=== PATIENT | male | born 1940 | race Caucasian/White ===

== ENCOUNTER 2021-01-28 16:11 | Inpatient (IN) | payer OTHER, SELFPAY ==
[2021-01-28] VITALS (7 sets, daily range): BP systolic 111–162; BP diastolic 58–90; PULSE 54–87; RESP 16–20; TEMP 36.6–37.1; O2SAT 94–99; BMI 24.8
--- NOTE | 2021-01-28 16:15 | DI.CT.S_ITS ---
PROCEDURE: CT STROKE INDICATIONS: acute Right facial droop, dysarthria TECHNIQUE: Noncontrast 4.5 mm thick angled axial sections acquired from the foramen magnum to the vertex, with coronal reformats. For radiation dose reduction, the following was used: automated exposure control, adjustment of mA and/or kV according to patient size. COMPARISON: None. FINDINGS: Image quality: Excellent. CSF spaces: Basal cisterns are patent. No extra-axial fluid collections. The ventricles are symmetric in size and shape. Brain: No intracranial bleeds or masses. There is cerebral volume loss for age, with resultant ventricular and sulcal prominence. There are periventricular and deep white matter chronic small vessel ischemic changes. Old small focal left posterior temporal infarct. There is intracranial internal carotid artery atherosclerosis. Question hyperdense distal left vertebral artery. Mild increased density in the right M1 segment MCA. Skull and face: Calvarium and visualized facial bones appear intact, without suspicious lesions. Sinuses: Visualized sinuses and mastoids are clear. IMPRESSION: 1. Question hyperdense left distal vertebral artery, suggesting possible acute thrombosis. 2. No evidence of acute stroke or hemorrhage or mass. 3. Old focal left posterior temporal stroke. Comment: Findings were discussed with Dr. Walls on 01/28/2021 at 1628 hours. This study fulfills neurological imaging criteria for inclusion or exclusion of acute stroke therapies based on available published neurological guidelines. Dictated by: Seth Leo M.D. on 01/28/2021 at 16:26 Approved by: Seth Leo M.D. on 01/28/2021 at 16:31
--- NOTE | 2021-01-28 16:16 | DI.CT.S_ITS ---
PROCEDURE: CT ANGIO HEAD AND NECK INDICATIONS: acute Right facial droop, dysarthria TECHNIQUE: Noncontrast images were performed earlier in the day and not repeated. After the administration of intravenous contrast, 1 mm thick sections acquired from the aortic arch through the [place]. Post-contrast 4.5 mm thick sections then re-acquired from the foramen magnum to the vertex. 3-dimensional cyygfng-cmfhohhyi-jzhawydgez (MIP) and/or volume rendering reformats were acquired of the central intracranial vasculature and neck separately. COMPARISON: [facility], CT, CT STROKE, 01/28/2021, 16:20. FINDINGS: Image quality: Excellent. BRAIN: CSF spaces: Ventricles are normal in size and shape. Basal cisterns are patent. No extra-axial fluid collections. Brain: No midline shift. No intracranial bleeds or masses. [place]-white matter interface appears intact. Skull and face: Calvarium and facial bones appear intact, without suspicious lesions. Orbits appear normal. Sinuses: Sinuses and mastoids are clear. HEAD CT ANGIOGRAPHY: Anterior circulation: Intracranial internal carotid arteries are normal in size and flow. The flow within the paired anterior cerebral arteries is normal and symmetric. The flow within the middle cerebral arteries is normal and symmetric. The anterior communicating artery is seen. No aneurysms are seen. Posterior circulation: Visualized portions of the vertebral arteries demonstrate normal caliber, and join to form a normal appearing basilar artery. There is a prominent left posterior communicating artery seen, with an accompanying diminutive left P1 segment. This is attributed to a type origin of the left posterior cerebral artery, which is considered to be a normal developmental variant of typically no clinical consequence. Flow within the posterior cerebral arteries is normal and symmetric. No aneurysms are seen. NECK CT ANGIOGRAPHY: Carotid system: The great vessels demonstrate a conventional anatomy as they arise from the aortic arch. Irregular plaque can be seen involving the aortic arch, as on series 11, image 234. The origins of the common carotid arteries appear patent. The common carotid arteries demonstrate normal caliber and courses. The bifurcation regions demonstrate atherosclerotic irregularity and calcification. There is approximately 80% narrowing seen involving the left proximal internal carotid artery, which is largely caused by soft plaque. On the right, there is 40-50% narrowing seen within the proximal internal carotid artery. The more distal internal carotid arteries demonstrate normal course and caliber. Posterior circulation: The origins of the vertebral arteries demonstrate approximately 40% narrowing on each side. The more superior extracranial portions of both vertebral arteries also demonstrate normal courses and calibers. In this patient with this given history, scrutiny is given to the left V4 segment at the apparent noncontrast CT abnormality. The vertebral artery within this region is normal and widely patent. They join to form a normal appearing basilar artery. Soft tissues: Visualized neck soft tissues demonstrate no suspicious abnormalities. Bones: No suspicious bony lesions. Visualized cervical spine appears normally aligned. Moderate lower cervical spine degenerative changes are seen. IMPRESSION: No significant abnormality can be seen involving the left V4 segment at the area of concern identified on the noncontrast head CT performed earlier in the day. There is approximately 80% narrowing seen involving the left proximal internal carotid artery, caused primarily by soft plaque. There is 40-50% narrowing seen involving the right proximal internal carotid artery. Approximately 40% narrowing seen involving the origins of each vertebral artery. If there is strong clinical suspicion for an acute stroke, please consider an MRI for further evaluation, as it is more sensitive (assuming that there is no contraindication to MRI). Incidental note is made of: type origin of the left posterior cerebral artery Moderate lower cervical spine degenerative change Atherosclerotic plaque seen at the aortic arch Any quantitative measurements of stenosis were performed using NASCET criteria. Dictated by: Adis Atkins M.D. on 01/28/2021 at 15:49 Approved by: Adis Atkins M.D. on 01/28/2021 at 15:55
[2021-01-28 16:33] LABS: Add Manual Diff / Slide Review NO; Basophils Absolute Auto 100 /uL (0-100); Basophils Percent Auto 0.8 % (0-2); Eosinophils Absolute Auto 100 /uL (0-450); Eosinophils Percent Auto 0.5 % (2-4); Hematocrit 43.2 % (41-53); Hemoglobin 14.5 g/dL (13.5-17.5); Lymphocytes Absolute Auto 3000 /uL (1100-4500); Lymphocytes Percent Auto 27.9 % (25-40); Mean Corpuscular HGB Conc 33.6 % (30-36); Mean Corpuscular Hemoglobin 33.4 PG (26-34); Mean Corpuscular Volume 99.2 fL (80-100); Monocytes Absolute Auto 800 /uL (0-900); Monocytes Percent Auto 7.1 % (3-14); Neutrophils Absolute Auto 6900 /uL (1500-7000); Neutrophils Percent Auto 63.7 % (50-75); Platelet Count 234 X10^3/uL (150-400); Red Blood Cell Count 4.36 X10^6/uL (4.5-5.9); Red Cell Distribution Width 13.4 % (11.6-14.8); White Blood Cell Count 10.8 X10^3/uL (4.5-11.0)
[2021-01-28 16:40] LABS: INR 1.1 (0.9-1.3); Prothrombin Time 12.1 SECONDS (10.1-12.7)
[2021-01-28 16:43] LABS: PTT Partial Thromboplastin Tim 30 SECONDS (26.4-36.2)
--- NOTE | 2021-01-28 16:43 | ED_ITS ---
HPI - General Adult General Chief complaint: Neuro Symptoms/Deficit Stated complaint: fall, can not talk Time Seen by Provider: 01/28/21 16:15 Mode of arrival: Wheelchair Limitations: altered mental status History of Present Illness HPI narrative: 80-year-old gentleman was wondering the hallways near the outpatient primary care clinics, he was confused, dysarthric, could not express why he was here and could not tell us his name. Staff helped him into a wheelchair and brought him to the emergency department. He did have a wallet with him and we were able to identify him based on his [place] driver's license. He was alert not complaining any pain dysarthric with a right facial droop but was able to walk and did apparently drive himself from home to the emergency department. We were able to contact his ex- who reported that the last she had seen him was about a week ago and he seemed to be doing well. She notes that their son talked to him 3 or 4 days ago again, doing well. He apparently lives alone. His notes that he does regularly use marijuana as well as psychedelics mushrooms but does not drink or use other recreational drugs. He is followed by Dr. Garcia and she is contacted. His medical records indicate that his only medical problems are hyperlipidemia for which he discontinued his atorvastatin about a year and a half ago. He has not had problems with blood pressure, cardiovascular disease or diabetes. Related Data Home Medications Medication Instructions Recorded Confirmed sertraline 100 mg PO DAILY 01/28/21 01/28/21 Allergies Allergy/AdvReac Type Severity Reaction Status Date / Time No Known Drug Allergies Allergy Verified 01/28/21 16:31 Review of Systems Review of Systems ROS Unobtainable: Unobtainable due to medical condition Patient History Medical History (Updated 01/28/21 @ 17:38 by Skylar Walls MD) Hyperlipidemia Social History household members: none Smoking Status: Current every day smoker alcohol intake: never Exam Narrative Exam Narrative: General: Healthy appearing, in no acute distress. Dysarthric but able to slowly answer questions. Well-nourished well-developed HEENT: Moist mucous membranes, right sclera injected (this is apparently a birthmark) with reactive pupils, no contusions abrasions or trauma to the head Neck: No JVD, supple Respiratory: Lungs are clear to auscultation, no wheezing no rales no rhonchi. Full and symmetrical air movement Cardiac: Regular rate and rhythm no murmurs no bruits Abdomen: Soft, nontender, good bowel tones, no flank pain Skin: Warm and dry, no rashes Neurologic: Right-sided facial droop, mild dysarthria and mild expressive dysphagia, slight decreased sensation right face right hand no motor abnormalities he is able to walk without difficulty and some minor ataxic difficulties with the right upper extremity. Extremities: No trauma, well perfused Psych: Cooperative, appropriate insight and affect NIH Stroke Scale/Score (NIHSS) RESULT SUMMARY: 5 points NIH Stroke Scale INPUTS: 1A: Level of consciousness ?> 0 = Alert; keenly responsive 1B: Ask month and age ?> 0 = Both questions right 1C: 'Blink eyes' & 'squeeze hands' ?> 0 = Performs both tasks 2: Horizontal extraocular movements ?> 0 = Normal 3: Visual [place] ?> 0 = No visual loss 4: Facial palsy ?> 1 = Minor paralysis (flat nasolabial fold, smile asymmetry) 5A: Left arm motor drift ?> 0 = No drift for 10 seconds 5B: Right arm motor drift ?> 0 = No drift for 10 seconds 6A: Left leg motor drift ?> 0 = No drift for 5 seconds 6B: Right leg motor drift ?> 0 = No drift for 5 seconds 7: Limb Ataxia ?> 1 = Ataxia in 1 Limb 8: Sensation ?> 1 = Mild-moderate loss: less sharp/more dull 9: Language/aphasia ?> 1 = Mild-moderate aphasia: some obvious changes, without significant limitation 10: Dysarthria ?> 1 = Mild-moderate dysarthria: slurring but can be understood 11: Extinction/inattention ?> 0 = No abnormality Initial Vital Signs Initial Vital Signs: Vital Signs Temperature 98.8 F 01/28/21 16:11 Pulse Rate 64 01/28/21 16:11 Respiratory Rate 17 01/28/21 16:11 Blood Pressure 162/75 H 01/28/21 16:11 Pulse Oximetry 98 01/28/21 16:11 Course Orders Ordered: ED Orders 01/28/21 16:15 CT Stroke Stat 01/28/21 16:16 CT angio head and neck Stat 01/28/21 16:24 Complete Blood Count AUTO DIFF Stat Comprehensive Metabolic Panel Stat Ethanol (ETOH) Stat Partial Thromboplastin Time Stat Prothrombin Time INR Stat 01/28/21 16:33 EKG-12 Lead Stat 01/28/21 16:54 Consult to Speech Therapy Evaluate & Treat 01/28/21 17:30 COVID19 - ADMIT ([employer] swab/PCR) Stat 01/28/21 18:40 Urine Drug Screen, Rapid Stat 01/28/21 18:45 Urinalysis and Microscopic Stat Sodium Chloride (Normal Saline 0.9%) 1,000 mls @ 150 mls/hr IV CONT ROMULO Last Admin: 01/28/21 17:30 Dose: 150 mls/hr Documented by: ACE Vital Signs Vital signs: Vital Signs - 8 hr 01/28/21 16:11 01/28/21 16:33 01/28/21 17:00 Temperature 98.8 F Pulse Rate 64 66 62 Respiratory Rate 17 20 17 Blood Pressure 162/75 H 162/75 H 131/64 Pulse Oximetry 98 99 94 01/28/21 17:30 Temperature Pulse Rate 64 Respiratory Rate 17 Blood Pressure 135/67 Pulse Oximetry 98 Medical Decision Making Lab Data Lab results reviewed: Yes I reviewed the patient's lab results. Result diagrams: 01/28/21 16:24 01/28/21 16:24 Labs: Lab Results 01/28/21 01/28/21 01/28/21 Range/Units 16:24 16:24 16:24 WBC 10.8 (4.5-11.0) X10^3/uL RBC 4.36 L (4.5-5.9) X10^6/uL Hgb 14.5 (13.5-17.5) g/dL Hct 43.2 (41-53) % MCV 99.2 (80-100) fL MCH 33.4 (26-34) PG MCHC 33.6 (30-36) % RDW 13.4 (11.6-14.8) % Plt Count 234 (150-400) X10^3/uL Neut % (Auto) 63.7 (50-75) % Lymph % (Auto) 27.9 (25-40) % [place] % (Auto) 7.1 (3-14) % Eos % (Auto) 0.5 L (2-4) % Baso % (Auto) 0.8 (0-2) % Neut # (Auto) 6900 (1063-3480) /uL Lymph # (Auto) 3000 (9892-3114) /uL [place] # (Auto) 800 (0-900) /uL Eos # (Auto) 100 (0-450) /uL Baso # (Auto) 100 (0-100) /uL PT 12.1 (10.1-12.7) SECONDS INR 1.1 (0.9-1.3) APTT 30 (26.4-36.2) SECONDS Sodium 135 L (137-145) mmol/L Potassium 4.2 (3.4-5.1) mmol/L Chloride 104 (98-107) mmol/L Carbon Dioxide 25 (22-32) mmol/L BUN 17 (9-20) mg/dL Creatinine 0.89 (0.66-1.25) mg/dL Estimated GFR > 60.0 (>60) mL/min BUN/Creatinine Ratio 19.1 (6-22) Glucose 124 H (80-110) mg/dL Calcium 9.0 (8.4-10.2) mg/dL Total Bilirubin 0.4 (0.2-1.3) mg/dL AST 29 (17-59) IU/L ALT 23 (<50) IU/L Alkaline Phosphatase 90 (38-126) U/L Total Protein 6.8 (6.3-8.2) g/dL Albumin 3.6 (3.5-5.0) g/dL Globulin 3.2 (1.7-4.1) g/dL Albumin/Globulin Ratio 1.1 (1.0-2.8) Ethyl Alcohol < 10 ( - 10) mg/dL SARS-CoV-2 (PCR) (Negative) 01/28/21 Range/Units 17:30 WBC (4.5-11.0) X10^3/uL RBC (4.5-5.9) X10^6/uL Hgb (13.5-17.5) g/dL Hct (41-53) % MCV (80-100) fL MCH (26-34) PG MCHC (30-36) % RDW (11.6-14.8) % Plt Count (150-400) X10^3/uL Neut % (Auto) (50-75) % Lymph % (Auto) (25-40) % [place] % (Auto) (3-14) % Eos % (Auto) (2-4) % Baso % (Auto) (0-2) % Neut # (Auto) (9419-7511) /uL Lymph # (Auto) (7878-9461) /uL [place] # (Auto) (0-900) /uL Eos # (Auto) (0-450) /uL Baso # (Auto) (0-100) /uL PT (10.1-12.7) SECONDS INR (0.9-1.3) APTT (26.4-36.2) SECONDS Sodium (137-145) mmol/L Potassium (3.4-5.1) mmol/L Chloride (98-107) mmol/L Carbon Dioxide (22-32) mmol/L BUN (9-20) mg/dL Creatinine (0.66-1.25) mg/dL Estimated GFR (>60) mL/min BUN/Creatinine Ratio (6-22) Glucose (80-110) mg/dL Calcium (8.4-10.2) mg/dL Total Bilirubin (0.2-1.3) mg/dL AST (17-59) IU/L ALT (<50) IU/L Alkaline Phosphatase (38-126) U/L Total Protein (6.3-8.2) g/dL Albumin (3.5-5.0) g/dL Globulin (1.7-4.1) g/dL Albumin/Globulin Ratio (1.0-2.8) Ethyl Alcohol ( - 10) mg/dL SARS-CoV-2 (PCR) Negative (Negative) Imaging Data CT scan - head: Radiologist's Impression: FINDINGS: Image quality: Excellent. CSF spaces: Basal cisterns are patent. No extra-axial fluid collections. The ventricles are symmetric in size and shape. Brain: No intracranial bleeds or masses. There is cerebral volume loss for age, with resultant ventricular and sulcal prominence. There are periventricular and deep white matter chronic small vessel ischemic changes. Old small focal left posterior temporal infarct. There is intracranial internal carotid artery atherosclerosis. Question hyperdense distal left vertebral artery. Mild increased density in the right M1 segment MCA. Skull and face: Calvarium and visualized facial bones appear intact, without suspicious lesions. Sinuses: Visualized sinuses and mastoids are clear. IMPRESSION: 1. Question hyperdense left distal vertebral artery, suggesting possible acute thrombosis. 2. No evidence of acute stroke or hemorrhage or mass. 3. Old focal left posterior temporal stroke. Comment: Findings were discussed with Dr. Walls on 01/28/2021 at 1628 hours. This study fulfills neurological imaging criteria for inclusion or exclusion of acute stroke therapies based on available published neurological guidelines. Dictated by: Seth Leo M.D. on 01/28/2021 at 16:26 CTA head and neck: Radiologist's Impression: FINDINGS: Image quality: Excellent. BRAIN: CSF spaces: Ventricles are normal in size and shape. Basal cisterns are patent. No extra-axial fluid collections. Brain: No midline shift. No intracranial bleeds or masses. [place]-white matter interface appears intact. Skull and face: Calvarium and facial bones appear intact, without suspicious lesions. Orbits appear normal. Sinuses: Sinuses and mastoids are clear. HEAD CT ANGIOGRAPHY: Anterior circulation: Intracranial internal carotid arteries are normal in size and flow. The flow within the paired anterior cerebral arteries is normal and symmetric. The flow within the middle cerebral arteries is normal and symmetric. The anterior communicating artery is seen. No aneurysms are seen. Posterior circulation: Visualized portions of the vertebral arteries demonstrate normal caliber, and join to form a normal appearing basilar artery. There is a prominent left posterior communicating artery seen, with an accompanying diminutive left P1 segment. This is attributed to a type origin of the left posterior cerebral artery, which is considered to be a normal developmental variant of typically no clinical consequence. Flow within the posterior cerebral arteries is normal and symmetric. No aneurysms are seen. NECK CT ANGIOGRAPHY: Carotid system: The great vessels demonstrate a conventional anatomy as they arise from the aortic arch. Irregular plaque can be seen involving the aortic arch, as on series 11, image 234. The origins of the common carotid arteries appear patent. The common carotid arteries demonstrate normal caliber and courses. The bifurcation regions demonstrate atherosclerotic irregularity and calcification. There is approximately 80% narrowing seen involving the left proximal internal carotid artery, which is largely caused by soft plaque. On the right, there is 40-50% narrowing seen within the proximal internal carotid artery. The more distal internal carotid arteries demonstrate normal course and caliber. Posterior circulation: The origins of the vertebral arteries demonstrate approximately 40% narrowing on each side. The more superior extracranial portions of both vertebral arteries also demonstrate normal courses and calibers. In this patient with this given history, scrutiny is given to the left V4 segment at the apparent noncontrast CT abnormality. The vertebral artery within this region is normal and widely patent. They join to form a normal appearing basilar artery. Soft tissues: Visualized neck soft tissues demonstrate no suspicious abnormalities. Bones: No suspicious bony lesions. Visualized cervical spine appears normally aligned. Moderate lower cervical spine degenerative changes are seen. IMPRESSION: No significant abnormality can be seen involving the left V4 segment at the area of concern identified on the noncontrast head CT performed earlier in the day. There is approximately 80% narrowing seen involving the left proximal internal carotid artery, caused primarily by soft plaque. There is 40-50% narrowing seen involving the right proximal internal carotid artery. Approximately 40% narrowing seen involving the origins of each vertebral artery. If there is strong clinical suspicion for an acute stroke, please consider an MRI for further evaluation, as it is more sensitive (assuming that there is no contraindication to MRI). Incidental note is made of: type origin of the left posterior cerebral artery Moderate lower cervical spine degenerative change Atherosclerotic plaque seen at the aortic arch Any quantitative measurements of stenosis were performed using NASCET criteria. Dictated by: Adis Atkins M.D. on 01/28/2021 at 15:49 ECG Data Attestation: I personally reviewed and interpreted this ECG as follows: Interpretation: Sinus rhythm at a rate of 73 Normal axis, normal intervals Nonspecific ST T wave changes No acute ischemia MDM Narrative Medical decision making narrative: 80-year-old gentleman who presents with stroke-like symptoms but is unable to tell us when symptoms started. It does sound like symptoms may have started up to 3 days ago with a bit of dizziness a fall where he hit his head and he did not recognize that he was having speech difficulties. last known well was over 3 days ago, talking to his son over the phone. Due to this, he is not a tPA candidate CT does not show acute bleed or acute vessel occlusions. There is no evidence of infection, trauma, acute coronary syndrome or alternate explanation. Patient will be admitted to the hospitalist service for further evaluation of presumed stroke, unknown time of onset and not a tPA candidate. Discharge Plan Departure Patient Disposition: Admitted As Inpatient Clinical Impression: Cerebrovascular accident Qualifiers: CVA mechanism: unspecified Qualified Code(s): I63.9 - Cerebral infarction, unspecified Admit Date/Time: 01/28/21 17:36 Admit Provider: Kandace Finley
--- NOTE | 2021-01-28 16:52 | PC.NURSE ---
Fails swallow screen, did not perform due to aphasia/dysarthria.
[2021-01-28 16:53] LABS: Alanine Aminotransferase 23 IU/L (<50); Albumin 3.6 g/dL (3.5-5.0); Albumin Globulin Ratio 1.1 (1.0-2.8); Alkaline Phosphatase 90 U/L (38-126); Aspartate Aminotransferase 29 IU/L (17-59); BUN Creatinine Ratio 19.1 (6-22); Bilirubin Total 0.4 mg/dL (0.2-1.3); Blood Urea Nitrogen 17 mg/dL (9-20); Carbon Dioxide 25 mmol/L (22-32); Chloride 104 mmol/L (98-107); Estimated Glomerular Filt Rate > 60.0 mL/min (>60); Ethanol (ETOH) < 10 mg/dL; Globulin 3.2 g/dL (1.7-4.1); Glucose 124 mg/dL (80-110); HEMOLYSIS 33 (0-50); Potassium 4.2 mmol/L (3.4-5.1); Sodium 135 mmol/L (137-145); Total Protein 6.8 g/dL (6.3-8.2)
--- NOTE | 2021-01-28 17:15 | ED.GENADULT ---
HPI - General Adult General Chief complaint: Neuro Symptoms/Deficit Stated complaint: fall, can not talk Time Seen by Provider: 01/28/21 16:15 Mode of arrival: Wheelchair Limitations: altered mental status Related Data Allergies Allergy/AdvReac Type Severity Reaction Status Date / Time No Known Drug Allergies Allergy Verified 01/28/21 16:31 Exam Initial Vital Signs Initial Vital Signs: Vital Signs Temperature 98.8 F 01/28/21 16:11 Pulse Rate 64 01/28/21 16:11 Respiratory Rate 17 01/28/21 16:11 Blood Pressure 162/75 H 01/28/21 16:11 Pulse Oximetry 98 01/28/21 16:11 Course Orders Ordered: ED Orders 01/28/21 16:15 CT Stroke Stat Complete Blood Count AUTO DIFF Stat Comprehensive Metabolic Panel Stat Ethanol (ETOH) Stat Partial Thromboplastin Time Stat Prothrombin Time INR Stat Urinalysis and Microscopic Stat Urine Drug Screen, Rapid Stat EKG-12 Lead Stat 01/28/21 16:16 CT angio head and neck Stat 01/28/21 16:54 Consult to Speech Therapy Evaluate & Treat Sodium Chloride (Normal Saline 0.9%) 1,000 mls @ 150 mls/hr IV CONT ROMULO Vital Signs Vital signs: Vital Signs - 8 hr 01/28/21 16:11 01/28/21 16:33 Temperature 98.8 F Pulse Rate 64 66 Respiratory Rate 17 20 Blood Pressure 162/75 H 162/75 H Pulse Oximetry 98 99 Medical Decision Making Medical Records Medical records reviewed: Yes I reviewed the patient's medical records. Lab Data Lab results reviewed: Yes I reviewed the patient's lab results. Result diagrams: 01/28/21 16:24 01/28/21 16:24 Labs: Lab Results 01/28/21 01/28/21 01/28/21 Range/Units 16:24 16:24 16:24 WBC 10.8 (4.5-11.0) X10^3/uL RBC 4.36 L (4.5-5.9) X10^6/uL Hgb 14.5 (13.5-17.5) g/dL Hct 43.2 (41-53) % MCV 99.2 (80-100) fL MCH 33.4 (26-34) PG MCHC 33.6 (30-36) % RDW 13.4 (11.6-14.8) % Plt Count 234 (150-400) X10^3/uL Neut % (Auto) 63.7 (50-75) % Lymph % (Auto) 27.9 (25-40) % [place] % (Auto) 7.1 (3-14) % Eos % (Auto) 0.5 L (2-4) % Baso % (Auto) 0.8 (0-2) % Neut # (Auto) 6900 (8128-7906) /uL Lymph # (Auto) 3000 (8451-8036) /uL [place] # (Auto) 800 (0-900) /uL Eos # (Auto) 100 (0-450) /uL Baso # (Auto) 100 (0-100) /uL PT 12.1 (10.1-12.7) SECONDS INR 1.1 (0.9-1.3) APTT 30 (26.4-36.2) SECONDS Sodium 135 L (137-145) mmol/L Potassium 4.2 (3.4-5.1) mmol/L Chloride 104 (98-107) mmol/L Carbon Dioxide 25 (22-32) mmol/L BUN 17 (9-20) mg/dL Creatinine 0.89 (0.66-1.25) mg/dL Estimated GFR > 60.0 (>60) mL/min BUN/Creatinine Ratio 19.1 (6-22) Glucose 124 H (80-110) mg/dL Calcium 9.0 (8.4-10.2) mg/dL Total Bilirubin 0.4 (0.2-1.3) mg/dL AST 29 (17-59) IU/L ALT 23 (<50) IU/L Alkaline Phosphatase 90 (38-126) U/L Total Protein 6.8 (6.3-8.2) g/dL Albumin 3.6 (3.5-5.0) g/dL Globulin 3.2 (1.7-4.1) g/dL Albumin/Globulin Ratio 1.1 (1.0-2.8) Ethyl Alcohol < 10 ( - 10) mg/dL Imaging Data CTA head and neck: Radiologist's Impression: FINDINGS: Image quality: Excellent. BRAIN: CSF spaces: Ventricles are normal in size and shape. Basal cisterns are patent. No extra-axial fluid collections. Brain: No midline shift. No intracranial bleeds or masses. Cheatham-white matter interface appears intact. Skull and face: Calvarium and facial bones appear intact, without suspicious lesions. Orbits appear normal. Sinuses: Sinuses and mastoids are clear. HEAD CT ANGIOGRAPHY: Anterior circulation: Intracranial internal carotid arteries are normal in size and flow. The flow within the paired anterior cerebral arteries is normal and symmetric. The flow within the middle cerebral arteries is normal and symmetric. The anterior communicating artery is seen. No aneurysms are seen. Posterior circulation: Visualized portions of the vertebral arteries demonstrate normal caliber, and join to form a normal appearing basilar artery. There is a prominent left posterior communicating artery seen, with an accompanying diminutive left P1 segment. This is attributed to a type origin of the left posterior cerebral artery, which is considered to be a normal developmental variant of typically no clinical consequence. Flow within the posterior cerebral arteries is normal and symmetric. No aneurysms are seen. NECK CT ANGIOGRAPHY: Carotid system: The great vessels demonstrate a conventional anatomy as they arise from the aortic arch. Irregular plaque can be seen involving the aortic arch, as on series 11, image 234. The origins of the common carotid arteries appear patent. The common carotid arteries demonstrate normal caliber and courses. The bifurcation regions demonstrate atherosclerotic irregularity and calcification. There is approximately 80% narrowing seen involving the left proximal internal carotid artery, which is largely caused by soft plaque. On the right, there is 40-50% narrowing seen within the proximal internal carotid artery. The more distal internal carotid arteries demonstrate normal course and caliber. Posterior circulation: The origins of the vertebral arteries demonstrate approximately 40% narrowing on each side. The more superior extracranial portions of both vertebral arteries also demonstrate normal courses and calibers. In this patient with this given history, scrutiny is given to the left V4 segment at the apparent noncontrast CT abnormality. The vertebral artery within this region is normal and widely patent. They join to form a normal appearing basilar artery. Soft tissues: Visualized neck soft tissues demonstrate no suspicious abnormalities. Bones: No suspicious bony lesions. Visualized cervical spine appears normally aligned. Moderate lower cervical spine degenerative changes are seen. IMPRESSION: No significant abnormality can be seen involving the left V4 segment at the area of concern identified on the noncontrast head CT performed earlier in the day. There is approximately 80% narrowing seen involving the left proximal internal carotid artery, caused primarily by soft plaque. There is 40-50% narrowing seen involving the right proximal internal carotid artery. Approximately 40% narrowing seen involving the origins of each vertebral artery. If there is strong clinical suspicion for an acute stroke, please consider an MRI for further evaluation, as it is more sensitive (assuming that there is no contraindication to MRI). Incidental note is made of: type origin of the left posterior cerebral artery Moderate lower cervical spine degenerative change Atherosclerotic plaque seen at the aortic arch Any quantitative measurements of stenosis were performed using NASCET criteria. Dictated by: Adis Atkins M.D. on 01/28/2021 at 15:49
[2021-01-28] MEDS: SODIUM CHLORIDE 0.9% 1,000 ML 150 ML IV (17:30)
[2021-01-28 18:18] LABS: COVID19 - ADMIT (NP swab/PCR) Negative (Negative)
[2021-01-28 18:47] LABS: Bacteria Urine None Seen; RBC Urine None Seen (0-5/HPF)
[2021-01-28 18:49] LABS: Appearance Urine UA CLEAR; Bilirubin Urine UA NEGATIVE (NEGATIVE); Color Urine UA YELLOW; Glucose Urine UA NEGATIVE (Negative); Ketones Urine UA NEGATIVE (NEGATIVE); Leukocyte Esterase Urine UA NEGATIVE (NEGATIVE); Nitrite Urine UA NEGATIVE (Negative); Occult Blood Urine UA NEGATIVE (Negative); Protein Urine UA NEGATIVE (Negative); Specific Gravity Urine UA <=1.005 (1.000-1.035); Urobilinogen Urine UA 0.2 E.U./dL (0.2)
[2021-01-28 19:01] LABS: UR Morphine/Opiate cutoff 300 Negative (Negative); Ur Creatinine Normal (Normal); Ur Specific Gravity Normal (Normal); Urine Amphetamines Negative (Negative); Urine Barbiturates Negative (Negative); Urine Benzodiazepines Negative (Negative); Urine Cocaine Negative (Negative); Urine MDMA Negative (Negative); Urine Methadone Negative (Negative); Urine Methamphetamines Negative (Negative); Urine Oxycodone Negative (Negative); Urine Phencyclidine Negative (Negative); Urine Tetrahydrocannabinol Positive (Negative); Urine Tricyclic Antidepressant Negative (Negative); Urine pH Normal (Normal)
[2021-01-28 19:04] LABS: Culture Indicated Urine Cult Not Indicated; Squamous Epithelial Cell Urine 0-1 /HPF (0-5/HPF); WBC Urine 0-1/HPF (0-5/HPF)
--- NOTE | 2021-01-28 21:08 | DI.MRI.S_ITS ---
PROCEDURE: MR STROKE Pre- and post-contrast brain MRI, non-contrast brain MR angiogram, pre- and postcontrast neck MR angiogram INDICATIONS: CVA TECHNIQUE: Brain: Noncontrast axial T1 spin echo, axial T2 fast spin echo, sagittal and axial FLAIR, coronal T2 fast spin echo, axial gradient echo, axial diffusion and ADC through the brain. After the administration of contrast, axial 3D VIBE of the cranial vasculature and brain. Brain MRA: Non-contrast 3-D time of flight MR angiogram, with multiple ajjjhss-zlfsywxwj-zlcjasdmef (MIP) reformats performed. Neck MRA: Axial and sagittal TruFISP through the neck. Coronal dynamic MR angiogram during administration of contrast in the arterial and venous phases, with 3-dimenstional cyialuf-qxzthcafy-mcwzkckyeb (MIP) reformats constructed from subtraction images. COMPARISON: [facility], CT, CT ANGIO HEAD AND NECK, 01/28/2021, 16:20. [facility], CT, CT STROKE, 01/28/2021, 16:20. FINDINGS: Image quality: Excellent. BRAIN: CSF spaces: Ventricles are normal in size and shape. Basal cisterns are patent. No extra-axial fluid collections. Brain: No intracranial bleeds or mass effects. Cheatham-white matter interface is normal overall. However, diffusion weighted images show left-sided MCA distribution scattered small acute ischemic insults. The appearance is suggestive of an embolic distribution on the left, with punctate foci of cortical and deep white matter ischemic injury involving the cortex of the left parietal region, the deep white matter of the left verdugo radiata, and also far lateral left temporal cortex and deep white matter at the posterior temporal lobe, lateral to the atrium of the left lateral ventricle. Brainstem appears normal. Normal intravascular flow voids are present on the right but the sylvian fissure middle cerebral artery branches on the left show asymmetric low-flow or absent flow. No abnormal intracranial enhancement. Skull and face: Calvarial marrow signal is normal. Orbits appear normal. Sinuses: Sinuses and mastoids are clear. BRAIN MR ANGIOGRAM: Anterior circulation: Intracranial internal carotid arteries are normal in size and enhancement. The flow within the paired anterior cerebral arteries is normal and symmetric. The flow within the middle cerebral artery branches on the right is normal. On the left, however, a short segment of the M1 middle cerebral artery is patent and then the vessel caliber narrows abruptly and symmetric flow within the M2 branch of the middle cerebral artery on the left is diminutive or absent. At the lateral left sylvian fissure M2 branches are clearly visualized but absent on the left. The anterior communicating artery is seen. No stenoses, occlusions, or aneurysms. Posterior circulation: The visualized portions of the vertebral arteries demonstrate normal caliber, and join to form a normal appearing basilar artery. The flow within the posterior cerebral arteries is normal and symmetric. No stenoses, occlusions, or aneurysms. NECK MR ANGIOGRAM: Carotids: Great vessels demonstrate a conventional anatomy as they arise from the aortic arch. The origins of the common carotid arteries appear patent. The calibers and courses of both common carotid arteries are normal. The bifurcation regions appear normal bilaterally. The internal carotid arteries demonstrate normal course and caliber on the right but there is a left-sided 50% narrowing at the origin of the left internal carotid artery.. Posterior circulation: The origins of the vertebral arteries appear patent. More superior portions of both vertebral arteries demonstrate normal course and caliber, and join to form a normal appearing basilar artery. Miscellaneous: Subclavian arteries appear patent. Pre-contrast images through the neck show no soft tissue abnormalities. IMPRESSION: BRAIN MRI: No right-sided ischemic injury is found. There is, however, left-sided multifocal areas of acute or subacute ischemic injury, in the vascular distribution of the left MCA. The appearance is suggestive of left-sided origin embolic event. BRAIN MR ANGIOGRAM: There is a short segment of the M1 left middle cerebral artery patent, but then abrupt narrowing and either termination of or pronounced diminution of flow within the M2 segment of the left middle cerebral artery occurs.. Sylvian fissure branches are poorly visualized on the left but well visualized on the right. NECK MR ANGIOGRAM: Approximately 50% stenosis of the origin of the left internal carotid artery. Dictated by: Sina Hollis M.D. on 01/29/2021 at 10:50 Approved by: Sina Hollis M.D. on 01/29/2021 at 11:10
--- NOTE | 2021-01-28 21:13 | DI.ECHO.S_ITS ---
[facility]---------[facility] +---------+ : : [address] : : : : [id number] : : : : Phone: [phone] Echocardiogram Report + + :Name: VICTORIANO GUTIERRES Study Date: 01/29/2021 Height: 67 in : :[facility] ReadingLocation: Weight: 158 lb : : Gender: Male BSA: 1.8 m2 : :: 1940 Age: 80 yrs BP: 114/76 mmHg: :Reason For Study: CVA : :Ordering Physician: AYANA, : :EZEKIEL Performed By: Bhanu Rahman : :Referring: EZEKIEL PIÑA : + + Interpretation Summary Normal left ventricle size with ejection fraction 60-65%. Moderate aortic valve sclerosis. Mild mitral annular calcification. Mild tricuspid regurgitation. Procedure: A two-dimensional transthoracic echocardiogram with color flow and Doppler was performed. The study quality was technically adequate. There is no prior echocardiogram noted for this patient. The patient was in sinus rhythm with heart rates between 54-57 bpm during the exam. Left Ventricle: The left ventricle is normal in size and wall thickness. The ejection fraction is estimated to be 60-65%. There are no focal wall motion abnormalities. Diastolic parameters suggest probable normal left ventricular diastolic function and normal filling pressures. Right Ventricle: The right ventricle is normal in size and function. Atria: Both atria are normal in size. There is no Doppler evidence for an interatrial shunt. Mitral Valve: There is mild mitral annular calcification. There is trace mitral regurgitation. Aortic Valve: There is discrete nodular thickening of the non- coronary cusp. There is moderate aortic valve sclerosis. No aortic regurgitation is present. Tricuspid Valve: The tricuspid valve is normal in structure and function. There is mild tricuspid regurgitation. The right ventricular systolic pressure is estimated to be at least 30 mmHg based on an estimated right atrial pressure of 3 mm Hg. Pulmonic Valve: The pulmonic valve is normal in structure and function. There is mild pulmonic regurgitation. Great Vessels: The aortic root is normal size. The dimensions of the ascending aorta are normal. The IVC is of normal diameter and collapses greater than 50% with a sniff. This suggests a low right atrial pressure of 3 mm Hg. Pericardium/ Pleura There is no pericardial effusion. There is no pleural effusion. MMode/2D Measurements & Calculations LVIDd: 4.4 cm LVOT diam: 1.9 cm LVIDs: 2.8 cm Ao root diam: 3.3 cm FS: 35.3 % asc Aorta Diam: 3.0 cm IVSd: 1.00 cm LVPWd: 0.85 cm LV woods. diameter/BSA (cm/m^2): 2.4 LV sys. diameter/BSA (cm/m^2): 1.6 LA A2 area: 14.6 cm2 RA area: 16.8 cm2 LA A4 area: 22.6 cm2 IVC diam: 1.9 cm LA length (vol): 5.0 cm LA vol: 55.6 ml LA vol index: 30.4 ml/m2 RVD1 (basal): 3.6 cm TAPSE: 2.4 cm Doppler Measurements & Calculations Ao V2 max: 158.0 cm/sec LVOT Max Marino: 120.9 cm/sec Ao V2 mean: 117.6 cm/sec LV V1 max P.8 mmHg Ao max P.0 mmHg LV V1 VTI: 27.2 cm Ao mean P.0 mmHg SHANA(I,D): 2.1 cm2 Ao V2 VTI: 37.6 cm SHANA(V,D): 2.2 cm2 sev ratio: 0.72 SHANA indexed to BSA (cm^2/m^2): 1.2 MV E max marino: 108.6 cm/sec TR max marino: 259.7 cm/sec MV A max marino: 75.5 cm/sec TR max P.0 mmHg MV E/A: 1.4 PA V2 max: 86.6 cm/sec Med Peak E' Marino: 7.4 cm/sec PA V2 mean: 61.8 cm/sec E/E' med: 14.6 PA mean P.7 mmHg Lat Peak E' Marino: 8.3 cm/sec PA pr(Accel): 44.7 mmHg E/E' lat: 13.1 E/e' average: 13.9 MV dec time: 0.20 sec SV(LVOT): 79.2 ml Electronically signed by: Alisha Arenas on Reading Physician:01/29/2021 12:02 PM
[2021-01-28 21:35] LABS: Hemoglobin A1C% w Est Avg Glu 5.5 % (4.0-6.0)
[2021-01-28] MEDS: ATORVASTATIN 20 MG TABLET PO (22:27)
--- NOTE | 2021-01-28 23:15 | P.HP_ITS ---
History of Present Illness History of Present Illness Date Patient Seen: 01/28/21 Time Patient Seen: 22:10 Chief complaint: fall, can not talk Narrative: Mr. Lauri Najera is a 72-year-old elderly with a past medical history of hyperlipidemia and depression who is brought to the ER by police when the patient was found wandering and disoriented. Upon arrival to the ER the patient had expressive aphasia was nonverbal with a facial droop. The patient's last known well was when he spoke with his ex- 3 days ago. At the time of encounter the patient is verbalizing with dysarthria and does report having fallen and hit his head 3:00 a.m. this morning. He does not recall being brought into the emergency department. Patient additionally reports that last n igh he had an episode double vision. He denies complaints of headaches or dizziness. He denies recent illness, fevers or chills, nasal congestion or sore throat. He reports no shortness of breath, cough or wheezing and has epigastric or abdominal pain, nausea vomiting, diarrhea or constipation. He reports no difficulty voiding. Upon arrival to the ER the patient has temperature 90.8?, heart rate 64, blood pressure 162/75, respirations 17 saturating 98% on room air. A stat CT stroke protocol as obtain 20 questionable hyperdense left distal vertebral artery suggestive possible thrombosis, no evidence of acute acute stroke or hemorrhage or mass an old focal left posterior temporal stroke. CTA is obtained finding no significant abnormalities involving the left V4 segment of the concerning area noted on the noncontrast head CT. There is approximately 80% narrowing of left proximal internal carotid, 40-50% narrowing involving the right proximal internal carotid and 40% narrowing involving origins of each vertebral artery. On laboratory analysis he has white count of 10.8, hemoglobin 14.5, hematocrit 43.2 and platelets of 234. His coags are all within normal range. His electrol ytes are unremarkable with a BUN of 17 and creatinine 0.89. His nonfasting glucose is 124. His liver functions are also within normal ranges. His urinalysis is negative for infection. His urine tox screen is positive for marijuana and is COVID screening is negative. The patient is admitted to the hospitalist team for presumed CVA. Patient History Medical History Cerebrovascular accident Depression Hyperlipidemia Surgical History No history of previous surgery Family & Social History Family History Father Cardiovascular disease Heart attack Mother No significant past medical history Social History: household members none Prior Living Arrangements House Safety & Behavioral: Feels Safe in Current Yes Environment Been Physically Hurt or No Threatened By a Person Suicidal Ideation Description None Suicide Plan Description No Plan Tobacco & Substance use: Tobacco type cigarettes Smoking Status Current every day smoker alcohol intake never Substance Use Type does not use Meds Home Medications and Allergies Home Medications Medication Instructions Recorded Confirmed Type sertraline 100 mg PO DAILY 01/28/21 01/28/21 History Allergies Allergy/AdvReac Type Severity Reaction Status Date / Time No Known Drug Allergies Allergy Verified 01/28/21 16:31 Review of Systems Review of Systems ROS: Yes All systems reviewed with the patient and are negative except as otherwise documented Exam Vital Signs (past 8 hours): - 01/28/21 16:11 01/28/21 16:33 01/28/21 17:00 Temperature 98.8 F Pulse Rate 64 66 62 Respiratory Rate 17 20 17 Blood Pressure 162/75 H 162/75 H 131/64 Pulse Oximetry 98 99 94 01/28/21 17:30 01/28/21 18:05 01/28/21 21:29 Temperature 98.3 F 97.8 F Pulse Rate 64 87 59 L Respiratory Rate 17 20 18 Blood Pressure 135/67 136/90 112/64 Pulse Oximetry 98 96 98 Oxygen Delivery Method Room Air Oxygen Flow Rate 1 Narrative Exam Narrative: GENERAL APPEARANCE: well developed, frail appearing elderly gentleman with impaired speech, in no acute distress. HEENT: Atraumatic, PERRLA, conjunctiva clear, EOMs intact without nystagmus, no sinus tenderness to percussion, no rhinorrhea or epistaxis, mucous membranes are moist and pink. NECK/THYROID: neck supple, no JVD, no carotid bruit, no thyromegaly, trachea midline. LYMPH NODES: no cervical or supraclavicular lymphadenopathy. SKIN: [place], warm and dry, no visible lesions, rashes, ulcerations or petechiae. HEART: regular rate and rhythm, S1-S2, 1/6 systolic murmur, no rubs or gallops, brisk capillary refill, no edema LUNGS: clear to auscultation bilaterally, no coarseness crackles or wheezing, no cough present CHEST: Symmetrical movement, no accessory muscle use, good tidal volume, no pain on AP and lateral compression. ABDOMEN: Soft, no distention, no abdominal tenderness, no guarding or peritoneal signs, no organomegaly, no flank or suprapubic tenderness, active bowel tones. BACK: Normal curvature, nontender to palpation, no CVA tenderness on percussion EXTREMITIES: moves all extremities, strength is 5/5 and symmetrical, no deformities or joint effusions. NEUROLOGIC: AAO x4, no focal neurologic deficits, cranial nerves II-XII grossly intact, sensation intact to light touch, hearing grossly normal to speech. PSYCH: Good judgment, good insight, linear thought process, cooperative, appropriate with stable behavior Objective Labs Result Diagrams: 01/28/21 16:24 01/28/21 16:24 Labs: Laboratory Results - last 24 hr 01/28/21 01/28/21 01/28/21 16:24 16:24 16:24 WBC 10.8 RBC 4.36 L Hgb 14.5 Hct 43.2 MCV 99.2 MCH 33.4 MCHC 33.6 RDW 13.4 Plt Count 234 Neut % (Auto) 63.7 Lymph % (Auto) 27.9 [place] % (Auto) 7.1 Eos % (Auto) 0.5 L Baso % (Auto) 0.8 Neut # (Auto) 6900 Lymph # (Auto) 3000 [place] # (Auto) 800 Eos # (Auto) 100 Baso # (Auto) 100 PT 12.1 INR 1.1 APTT 30 Sodium 135 L Potassium 4.2 Chloride 104 Carbon Dioxide 25 BUN 17 Creatinine 0.89 Estimated GFR > 60.0 BUN/Creatinine Ratio 19.1 Glucose 124 H Hemoglobin A1c Calcium 9.0 Total Bilirubin 0.4 AST 29 ALT 23 Alkaline Phosphatase 90 Total Protein 6.8 Albumin 3.6 Globulin 3.2 Albumin/Globulin Ratio 1.1 Urine Color Urine Appearance Urine pH Ur Specific [place] Urine Protein Urine Glucose (UA) Urine Ketones Urine Occult Blood Urine Nitrate Urine Bilirubin Urine Urobilinogen Ur Leukocyte Esterase Urine RBC Urine WBC Ur Squamous Epith Cells Urine Bacteria Ur Culture Indicated? U Opiates 300ng/mL cut Ur Oxycodone Screen Urine Methadone Screen Ur Barbiturates Screen U Tricyclic Antidepress Ur Phencyclidine Scrn Ur Amphetamines Screen U Methamphetamines Scrn Ur MDMA Scrn (Ecstasy) U Benzodiazepines Scrn Urine Cocaine Screen U Marijuana (THC) Screen Ethyl Alcohol < 10 SARS-CoV-2 (PCR) 01/28/21 01/28/21 01/28/21 16:24 17:30 18:40 WBC RBC Hgb Hct MCV MCH MCHC RDW Plt Count Neut % (Auto) Lymph % (Auto) [place] % (Auto) Eos % (Auto) Baso % (Auto) Neut # (Auto) Lymph # (Auto) [place] # (Auto) Eos # (Auto) Baso # (Auto) PT INR APTT Sodium Potassium Chloride Carbon Dioxide BUN Creatinine Estimated GFR BUN/Creatinine Ratio Glucose Hemoglobin A1c 5.5 Calcium Total Bilirubin AST ALT Alkaline Phosphatase Total Protein Albumin Globulin Albumin/Globulin Ratio Urine Color Urine Appearance Urine pH Ur Specific [place] Urine Protein Urine Glucose (UA) Urine Ketones Urine Occult Blood Urine Nitrate Urine Bilirubin Urine Urobilinogen Ur Leukocyte Esterase Urine RBC Urine WBC Ur Squamous Epith Cells Urine Bacteria Ur Culture Indicated? U Opiates 300ng/mL cut Negative Ur Oxycodone Screen Negative Urine Methadone Screen Negative Ur Barbiturates Screen Negative U Tricyclic Antidepress Negative Ur Phencyclidine Scrn Negative Ur Amphetamines Screen Negative U Methamphetamines Scrn Negative Ur MDMA Scrn (Ecstasy) Negative U Benzodiazepines Scrn Negative Urine Cocaine Screen Negative U Marijuana (THC) Screen Positive H Ethyl Alcohol SARS-CoV-2 (PCR) Negative 01/28/21 18:45 WBC RBC Hgb Hct MCV MCH MCHC RDW Plt Count Neut % (Auto) Lymph % (Auto) [place] % (Auto) Eos % (Auto) Baso % (Auto) Neut # (Auto) Lymph # (Auto) [place] # (Auto) Eos # (Auto) Baso # (Auto) PT INR APTT Sodium Potassium Chloride Carbon Dioxide BUN Creatinine Estimated GFR BUN/Creatinine Ratio Glucose Hemoglobin A1c Calcium Total Bilirubin AST ALT Alkaline Phosphatase Total Protein Albumin Globulin Albumin/Globulin Ratio Urine Color Yellow Urine Appearance Clear Urine pH 7.0 Ur Specific [place] <=1.005 Urine Protein Negative Urine Glucose (UA) Negative Urine Ketones Negative Urine Occult Blood Negative Urine Nitrate Negative Urine Bilirubin Negative Urine Urobilinogen 0.2 Ur Leukocyte Esterase Negative Urine RBC None seen Urine WBC 0-1/hpf Ur Squamous Epith Cells 0-1 /hpf Urine Bacteria None seen Ur Culture Indicated? Cult not indicated U Opiates 300ng/mL cut Ur Oxycodone Screen Urine Methadone Screen Ur Barbiturates Screen U Tricyclic Antidepress Ur Phencyclidine Scrn Ur Amphetamines Screen U Methamphetamines Scrn Ur MDMA Scrn (Ecstasy) U Benzodiazepines Scrn Urine Cocaine Screen U Marijuana (THC) Screen Ethyl Alcohol SARS-CoV-2 (PCR) Assessment & Plan Assessment & Plan narrative: This is a 80-year-old frail-appearing elderly gentleman who is a current smoker with a past medical history of hyperlipidemia and depression who is brought to the ER by police after being found wandering and disoriented unable to speak. 1. Acute CVA, present on admission, active. -patient with prior left posterior temporal stroke and describes a fall hitting his head early this morning and double vision last night. -NIH score in the ER reported as 5, nursing reports a score of 4 and at the time of encounter NIH score is 3. Patient continues to demonstrate a trajectory of improvement, last known normal was 3 days ago. -CT of the head identifies hypodensity concerning for possible thrombus in the left distal vertebral artery. On CT a no significant abnormalities seen in the concerning segment noting approximately 80% narrowing involving the left proximal internal carotid artery, 40-50% narrowing of the right proximal ICA, approximate 40% stenosis seen at the origin of each vertebral artery. -ordered aspirin 81 mg daily and atorvastatin 20 mg daily. -MRI stroke protocol and echocardiogram in the morning -requested PT, OT and ST to consult evaluate and treat. -ordered hemoglobin A1c, lipid panel and TSH for risk stratification. 2. Hyperlipidemia, chronic, stable -patient was previously on statin therapy until approximately 18 months ago. -ordered atorvastatin 20 mg daily. -will obtain a lipid panel with morning labs. 3. Depression, chronic, stable -continue sertraline 100 mg daily. VTE prophylaxis: Enoxaparin IV fluid: Saline lock Diet: Heart healthy Code status: DO NOT RESUSCITATE, patient designates his ex- Catherine to be his surrogate decision maker. The patient is admitted to the hospital for further monitoring and evaluation of stroke to prevent complications or adverse events. The patient is admitted as observation with expected length of stay to be less than 2 midnights. COVID-19 COVID-19 status: Negative Result date/Date tested (Pos, Neg/Pending): 01/28/21 Scores GCS Inderjit coma scale eye opening: Spontaneous [place] coma scale verbal response: Orientated Inderjit coma scale motor response: Obey commands Inderjit coma scale total score: 15 NIHSS Level of Conciousness: Alert, keenly responsive Ask month/age: Answers both questions correctly. Open/close eyes, close hand: Performs both tasks correctly Best gaze horizontal: Normal Visual [place]: No visual loss Facial palsy: Minor paralysis, flattened nasolabial fold, asymmetry on smiling Left arm drift: No drift for full 10 sec Right arm drift: No drift for full 10 sec Left leg drift: No drift for full 5 sec Right leg drift: No drift for full 5 sec Limb ataxia: Absent Sensory on face/arms/legs: Normal, no sensory loss Best language: Mild to moderate, slurs some words Dysarthria: Mild to mod,some slurring Extinction or inattention: No abnormality Total NIH Stroke scale score: 3 Quality VTE Deep Vein Thrombosis/Pulmonary Embolism Present on Admission: No MIPS - Admit I confirm the patient?s Advance Care Plan is present, Code status is documented, Surrogate decision maker is in patient?s record [If Yes, STOP here]: Yes
[2021-01-29 04:00] VITALS: BP 102/58; PULSE 60; RESP 16; TEMP 36.8; O2SAT 96
[2021-01-29 05:14] LABS: BUN Creatinine Ratio 17.1 (6-22); Blood Urea Nitrogen 14 mg/dL (9-20); Calcium 8.4 mg/dL (8.4-10.2); Carbon Dioxide 25 mmol/L (22-32); Chloride 107 mmol/L (98-107); Cholesterol 176 mg/dL (140-199); Estimated Glomerular Filt Rate > 60.0 mL/min (>60); Glucose 101 mg/dL (80-110); HDL Cholesterol 27 mg/dL (40-60); HEMOLYSIS < 15 (0-50); LDL Cholesterol Calculated 118 mg/dL (<100); Sodium 136 mmol/L (137-145); Triglycerides 157 mg/dL (35-150)
[2021-01-29 07:32] VITALS: BP 114/76; PULSE 55; RESP 16; TEMP 36.4; O2SAT 96
[2021-01-29] MEDS: ASPIRIN EC 81 MG TABLET PO (09:33)
[2021-01-29] MEDS: DOCUSATE 100 MG CAPSULE PO ×2 (09:33→20:48)
[2021-01-29] MEDS: ENOXAPARIN 40 MG/0.4 ML SYRINGE SUBCUT (09:33)
--- NOTE | 2021-01-29 10:38 | ST.IPSLE ---
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) Past Medical History (Last Reviewed 01/28/21 @ 23:31 by ZACHARY Slade) Cerebrovascular accident (Medical) Depression (Medical) Hyperlipidemia (Medical) Speech-Language 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 Adult Cognitive Linguistic Eval Start: 01/29/21 10:06 Freq: Status: Active Protocol: Document 01/29/21 10:08 LNK (Rec: 01/29/21 10:37 LNK [id number]) Adult Cognitive Linguistic Evaluation Session Time Visit Start Time 09:20 Visit Stop Time 10:00 Total Visit Minutes 40 Referral Reason for Referral Code stroke Setting Assessment Location Acute Care Visit Type Note Type Initial evaluation Patient Information Identification Type Name,Date of Medical History Lauri Najera is a 80-year- old elderly with a past medical history of hyperlipidemia and depression who is brought to the ER by police when the patient was found wandering and disoriented. Upon arrival to the ER the patient had expressive aphasia was nonverbal with a facial droop. The patient's last known well was when he spoke with his ex- 3 days ago. At the time of encounter the patient is verbalizing with dysarthria and does report having fallen and hit his head 3:00 a.m. this morning. He does not recall being brought into the emergency department. Patient additionally reports that last night he had an episode double vision. Subjective Patient Report Pt was in bed alone in his room with breakfast tray at bedside. Nursing reported that the pt's PO tolerance had resolved and pt was eating/ drinking without difficulty. Pt agreed to talking with me. When asked why he was wandering around town at 10:00 at night, he responded I was at home. He also stated that he drove [himself] to the hospital. Assessment Oral Motor Examination Completed Yes: WFL Results Dentition adequate for mastication. ROM and strength adequate. Diadochokinesis is slow. Speech intelligibility ~ 90-100%. Informal Assessment Receptive Language Normal Yes: Informal conversation was WFL Expressive Language Normal Yes: Informal conversation was WFL Speech Impairment(s) Slow speech rate Cognitive Impairment(s) Orientation,Thought organization Formal Assessment Standardized Test/Screener Type [facility] Mental Status ([facility]) Administration Complete Results Pt reported that he had advanced education earning both undergraduate and graduate degrees. He scored 18/30 on the SLUMS indicating mild-moderate neurocognitive disorder. He was unsure of the day of the week but was able to state year, town and state. He remembered 1/5 words after a 5 minute delay. Mental math was mildly impaired for number reversal and subtraction. Pt's clock drawing showed uneven number spacing, but the time was accurate. Answering questions following a short paragraph read aloud to him, pt successfully answered 3/4 questions. Findings/Results Cognitive Function Mild-moderately impaired Cognitive Communication Deficits Self-awareness of Cognitive- No awareness Communication Deficits Impact on Functioning Activity Limits/Particip.Rest. Mild: General Tasks and Demands Interpersonal Interactions Community Mod: Household Tasks Safety Risks Mild: Being Left Alone at Home Mod: Reacting to Emergency Managing Medication Traveling Alone in Community Prognosis Prognosis Fair Based on Cognitive status Plan of Care Speech-Language Treatment No Frequency Pt declined speech therapy Patient/Caregiver Education Described results of evaluation,Patient expressed understanding of evaluation, Patient expressed understanding of eval, but refused treatment Discharge Recommendations penitentiary facility,intermediate manager care facility
[2021-01-29] MEDS: SERTRALINE 50 MG TABLET 100 MG PO (10:40)
[2021-01-29 11:21] VITALS: BP 124/91; PULSE 57; RESP 18; O2SAT 98
[2021-01-29] MEDS: CLOPIDOGREL 75 MG TABLET PO (12:21)
[2021-01-29] MEDS: ACETAMINOPHEN 325 MG TABLET 650 MG PO (12:21)
--- NOTE | 2021-01-29 12:34 | CM.DANOTE ---
Discharge Planning/Care Management DCP: assessment: case received, EMR reviewed and met with pt during Team Rounds and again just now. Introduced self and role. Pt is found sitting up, eating lunch. Very agreeable to talk. Pt is a 80 year old male who admitted last evening to care of hospitalist team. PCP: Roxann Garcia Payer: [employer] Medicare Admission status: INPT: confirmed by UR RN Lee. Pt confirms his family contacts: ex : Catherine Bird: [phone]/Karma and son Ahmet/Molina: [phone] (he looks this number up in his cell phone.) Dr. Pang confirms MRI shows pt is + for CVA. RESIDENTIAL LEASING MANAGER/OT and PT are ordered. PT arrived in room during this initial discussion with pt and left her to begin her eval. P: see pt again tomorrow as more is known re the POC going forward and the therapy recommendations. Pt does confirm that he drove himself to the hospital and has been looking for the ER when found by [facility] staff in the halls (see Dr. Walls's ER documentation for specifics.) Pt does confirm in Rounds that the only medication he takes is sertraline. He says that his family is aware that he is in the hospital. CM Discharge Assessment Start: 01/29/21 12:32 Freq: Status: Active Protocol: Document 01/29/21 12:33 ITV (Rec: 01/29/21 12:34 ITV [id number]) Discharge Planning Assessment Advance Directives? No History Provided By Patient,Medical Record Has Patient been admitted in last 30 No days? Prior Living Arrangements House Household Members none Type of transportation used prior to Drives own vehicle admit Independent with ADL's Yes Is patient alert and oriented? Yes Whiteboard Updated in Patient Room with Yes name and ext. # of Informatics Spec Review Status In Process
--- NOTE | 2021-01-29 13:46 | PM.PN.1 ---
Subjective Subjective Interval history: Mr. Lauri Najera is a 72-year-old elderly with a past medical history of hyperlipidemia and depression who is brought to the ER by police when the patient was found wandering and disoriented. Upon arrival to the ER the patient had expressive aphasia was nonverbal with a facial droop. His speech is still decreased from baseline, also reports some R arm weakness compared to baseline though not apparent on exam. The patient's last known well was when he spoke with his ex- 3 days prior to admission. Admits to [employer] mushroom use. 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 He was started on asa and plavix and statin increased to high intensity. Will continue to monitor, evaluate for disposition with PT/OT. SLUMS of 18 today, may be in setting of toxic encephalopathy or acute infarct. Exam Vital Signs (past 8 hours): - 01/29/21 07:32 01/29/21 11:21 Temperature 97.5 F L Pulse Rate 55 L 57 L Respiratory Rate 16 18 Blood Pressure 114/76 124/91 H Pulse Oximetry 96 98 Oxygen Delivery Method Room Air Oxygen Flow Rate 0 Narrative Exam Narrative: GENERAL APPEARANCE: well developed, frail appearing elderly gentleman with impaired speech, in no acute distress. HEENT: Atraumatic, PERRLA, conjunctiva clear, EOMs intact without nystagmus, no sinus tenderness to percussion, no rhinorrhea or epistaxis, mucous membranes are moist and pink. NECK/THYROID: neck supple, no JVD, no carotid bruit, no thyromegaly, trachea midline. LYMPH NODES: no cervical or supraclavicular lymphadenopathy. SKIN: [place], warm and dry, no visible lesions, rashes, ulcerations or petechiae. HEART: regular rate and rhythm, S1-S2, no rubs, murmur, or gallops, brisk capillary refill, no edema LUNGS: clear to auscultation bilaterally, no coarseness crackles or wheezing, no cough present CHEST: Symmetrical movement, no accessory muscle use, good tidal volume, no pain on AP and lateral compression. ABDOMEN: Soft, no distention, no abdominal tenderness, no guarding or peritoneal signs, no organomegaly, no flank or suprapubic tenderness, active bowel tones. BACK: Normal curvature, nontender to palpation, no CVA tenderness on percussion EXTREMITIES: moves all extremities, strength is 5/5 and symmetrical, no deformities or joint effusions. NEUROLOGIC: AAO x4, no focal neurologic deficits, cranial nerves II-XII grossly intact, sensation intact to light touch, hearing grossly normal to speech. PSYCH: Good judgment, good insight, linear thought process, cooperative, appropriate with stable behavior Objective Labs Result Diagrams: 01/28/21 16:24 01/29/21 04:50 Labs: Laboratory Results - last 24 hr 01/28/21 01/28/21 01/28/21 16:24 16:24 16:24 WBC 10.8 RBC 4.36 L Hgb 14.5 Hct 43.2 MCV 99.2 MCH 33.4 MCHC 33.6 RDW 13.4 Plt Count 234 Neut % (Auto) 63.7 Lymph % (Auto) 27.9 Saline % (Auto) 7.1 Eos % (Auto) 0.5 L Baso % (Auto) 0.8 Neut # (Auto) 6900 Lymph # (Auto) 3000 Saline # (Auto) 800 Eos # (Auto) 100 Baso # (Auto) 100 PT 12.1 INR 1.1 APTT 30 Sodium 135 L Potassium 4.2 Chloride 104 Carbon Dioxide 25 BUN 17 Creatinine 0.89 Estimated GFR > 60.0 BUN/Creatinine Ratio 19.1 Glucose 124 H Hemoglobin A1c Calcium 9.0 Total Bilirubin 0.4 AST 29 ALT 23 Alkaline Phosphatase 90 Total Protein 6.8 Albumin 3.6 Globulin 3.2 Albumin/Globulin Ratio 1.1 Triglycerides Cholesterol LDL Cholesterol, Calc HDL Cholesterol TSH Urine Color Urine Appearance Urine pH Ur Specific [place] Urine Protein Urine Glucose (UA) Urine Ketones Urine Occult Blood Urine Nitrate Urine Bilirubin Urine Urobilinogen Ur Leukocyte Esterase Urine RBC Urine WBC Ur Squamous Epith Cells Urine Bacteria Ur Culture Indicated? U Opiates 300ng/mL cut Ur Oxycodone Screen Urine Methadone Screen Ur Barbiturates Screen U Tricyclic Antidepress Ur Phencyclidine Scrn Ur Amphetamines Screen U Methamphetamines Scrn Ur MDMA Scrn (Ecstasy) U Benzodiazepines Scrn Urine Cocaine Screen U Marijuana (THC) Screen Ethyl Alcohol < 10 SARS-CoV-2 (PCR) 01/28/21 01/28/21 01/28/21 16:24 17:30 18:40 WBC RBC Hgb Hct MCV MCH MCHC RDW Plt Count Neut % (Auto) Lymph % (Auto) Saline % (Auto) Eos % (Auto) Baso % (Auto) Neut # (Auto) Lymph # (Auto) Saline # (Auto) Eos # (Auto) Baso # (Auto) PT INR APTT Sodium Potassium Chloride Carbon Dioxide BUN Creatinine Estimated GFR BUN/Creatinine Ratio Glucose Hemoglobin A1c 5.5 Calcium Total Bilirubin AST ALT Alkaline Phosphatase Total Protein Albumin Globulin Albumin/Globulin Ratio Triglycerides Cholesterol LDL Cholesterol, Calc HDL Cholesterol TSH Urine Color Urine Appearance Urine pH Ur Specific [place] Urine Protein Urine Glucose (UA) Urine Ketones Urine Occult Blood Urine Nitrate Urine Bilirubin Urine Urobilinogen Ur Leukocyte Esterase Urine RBC Urine WBC Ur Squamous Epith Cells Urine Bacteria Ur Culture Indicated? U Opiates 300ng/mL cut Negative Ur Oxycodone Screen Negative Urine Methadone Screen Negative Ur Barbiturates Screen Negative U Tricyclic Antidepress Negative Ur Phencyclidine Scrn Negative Ur Amphetamines Screen Negative U Methamphetamines Scrn Negative Ur MDMA Scrn (Ecstasy) Negative U Benzodiazepines Scrn Negative Urine Cocaine Screen Negative U Marijuana (THC) Screen Positive H Ethyl Alcohol SARS-CoV-2 (PCR) Negative 01/28/21 01/29/21 01/29/21 18:45 04:50 04:50 WBC RBC Hgb Hct MCV MCH MCHC RDW Plt Count Neut % (Auto) Lymph % (Auto) Saline % (Auto) Eos % (Auto) Baso % (Auto) Neut # (Auto) Lymph # (Auto) Saline # (Auto) Eos # (Auto) Baso # (Auto) PT INR APTT Sodium 136 L Potassium 4.0 Chloride 107 Carbon Dioxide 25 BUN 14 Creatinine 0.82 Estimated GFR > 60.0 BUN/Creatinine Ratio 17.1 Glucose 101 Hemoglobin A1c Calcium 8.4 Total Bilirubin AST ALT Alkaline Phosphatase Total Protein Albumin Globulin Albumin/Globulin Ratio Triglycerides 157 H Cholesterol 176 LDL Cholesterol, Calc 118 H HDL Cholesterol 27 L TSH 2.60 Urine Color Yellow Urine Appearance Clear Urine pH 7.0 Ur Specific [place] <=1.005 Urine Protein Negative Urine Glucose (UA) Negative Urine Ketones Negative Urine Occult Blood Negative Urine Nitrate Negative Urine Bilirubin Negative Urine Urobilinogen 0.2 Ur Leukocyte Esterase Negative Urine RBC None seen Urine WBC 0-1/hpf Ur Squamous Epith Cells 0-1 /hpf Urine Bacteria None seen Ur Culture Indicated? Cult not indicated U Opiates 300ng/mL cut Ur Oxycodone Screen Urine Methadone Screen Ur Barbiturates Screen U Tricyclic Antidepress Ur Phencyclidine Scrn Ur Amphetamines Screen U Methamphetamines Scrn Ur MDMA Scrn (Ecstasy) U Benzodiazepines Scrn Urine Cocaine Screen U Marijuana (THC) Screen Ethyl Alcohol SARS-CoV-2 (PCR) PFS Medical History Cerebrovascular accident Depression Hyperlipidemia Surgical History No history of previous surgery Family History Father Cardiovascular disease Heart attack Mother No significant past medical history Social History household members: none Smoking Status: Current every day smoker alcohol intake: never Assessment & Plan Assessment & Plan narrative: This is a 80-year-old frail-appearing elderly gentleman who is a current smoker with a past medical history of hyperlipidemia and depression who is brought to the ER by police after being found wandering and disoriented unable to speak, improved today. MRI confirmed acute left sided CVA. 1. Acute CVA, present on admission, active. -patient with prior left posterior temporal stroke and describes a fall hitting his head early this morning and double vision last night. -NIH score in the ER reported as 5, nursing reports a score of 4 and at the time of encounter NIH score is 3. Patient continues to demonstrate a trajectory of improvement, last known normal was 3 days ago. -CT of the head identifies hypodensity concerning for possible thrombus in the left distal vertebral artery. On CTA no significant abnormalities seen in the concerning segment noting approximately 80% narrowing involving the left proximal internal carotid artery, 40-50% narrowing of the right proximal ICA, approximate 40% stenosis seen at the origin of each vertebral artery.\ - MRI shows multiple acute/subacute ischemic infarcts in the area of the L MCA indicative of a left sided embolic event (from carotids). -continue asa, plavix, and statin increased to high intensity dosing. Plavix should be continued for at least 90 days. Recommend outpatient follow up with vascular surgery. -TTE unremarkable. -continue PT/OT. -A1c 5.5% , LDL 118, TSH 2.6 2. Hyperlipidemia, chronic, stable -patient was previously on statin therapy until approximately 18 months ago. -statin and LDL as noted above. 3. Depression, chronic, stable -continue sertraline 100 mg daily. 4. toxic encephalopathy or chronic cognitive impairment - patient with SLUMS of 18 with speech therapy today. May be in setting of acute infarct or psychadelic mushroom use. Recommend repeat SLUMS as an outpatient. - Continue OT. patient refused further speech therapy. VTE prophylaxis: Enoxaparin IV fluid: Saline lock Diet: Heart healthy Code status: DO NOT RESUSCITATE, patient designates his ex- Catherine to be his surrogate decision maker. Dispo: remains inpatient. To determine if discharge home with home health or possible SNF pending PT/OT evaluations. Quality VTE Deep Vein Thrombosis/Pulmonary Embolism Present on Admission: No
--- NOTE | 2021-01-29 14:20 | PT.IIE ---
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) Surgical History (Last Reviewed 01/28/21 @ 23:31 by ZACHARY Slade) No history of previous surgery Medical History (Last Reviewed 01/28/21 @ 23:31 by ZACHARY Slade) Cerebrovascular accident Depression Hyperlipidemia Physical Therapy Inpatient Evaluation/Re-Eval M1 PT/OT-IP Prior Functional Status Start: 01/29/21 15:24 Freq: NEEDED Status: Active Protocol: Document 01/29/21 14:20 AB (Rec: 01/29/21 15:58 AB [id number]) Medical Review Prior Functional Status Medical History Reviewed Yes Communication able to make needs known but with difficulty with speaking Mobility and Gait pt stated that he is independent with all mobilities and ambulation without AD Social History Household Members none Living Arrangements House Number of Floors (Floors) One Floor Number of Stairs To Enter/Railing? 2 steps to enter with bilateral posts (roof support posts) that he can hold on to Home Environment Standard Height Toilet,Tub/ Shower,Built-In Shower Seat Additional Social History Comment pt stated that his ex- calls and checks on him M2 PT-IP Current Condition Start: 01/29/21 15:24 Freq: NEEDED Status: Active Protocol: Document 01/29/21 14:20 AB (Rec: 01/29/21 15:58 AB [email or web address]) Physical Therapy Current Condition Current Condition Evaluation Date 01/29/21 Treatment Diagnosis CVA; difficulty in walking Onset Date 01/28/21 Precautions Other Precautions falls M3 PT-IP Subjective Start: 01/29/21 15:24 Freq: NEEDED Status: Active Protocol: Document 01/29/21 14:20 AB (Rec: 01/29/21 15:58 AB [email or web address]) Subjective Physical Therapy Visit Type Type Initial Evaluation Visit Start Time 14:20 Visit Stop Time 14:55 Total Visit Minutes 35 Number of STABLE MANAGER Visits 0 Physical Therapy Visit Comments Patient Comments pt is agreeable to do PT Therapy Pain Assessment Pain Present Pain Present Denied Pain M4 PT-IP Mobility and Gait Start: 01/29/21 15:24 Freq: NEEDED Status: Active Protocol: Document 01/29/21 14:20 AB (Rec: 01/29/21 15:58 AB [email or web address]) PT-Bed Mobility Assessment Supine to Sit Supine to Sit Standby Assistance Sit to Supine Sit to Supine Standby Assistance PT-Transfer Assessment Sit to and From Stand Sit to and from Stand Standby Assistance Equipment Transfer Assistive Device None,Gait Belt Orthotic/Prosthetic Devices or Brace: No Transfers Transfer Destination Chair Transfer Technique ambulated without AD Transfer Ability Level of Assist Contact Guard Assistance,1 Person Assistance,Use of Upper Extremities Comments Mobility Comments pt supine in bed and agreed to do PT. able to answer questions but has difficulty with speaking and pauses to get words out. completed supine to sit SBA and was able to sit on EOB SBA. completed sit to stand SBA and ambulated in room CGA. (+) LOB x 3 with LOB to the right, pt tends to cross RLE over midline and has difficulty walking a straigth path. tinettti balance assessment completed: total score of which relates to moderate fall risk. educated pt on safety and increase standing balance awareness. instructed pt to ambulate and walk a straight path and completed and is steadier than first walking. pt agreed to sit up on chair. ambulated to the chair. postioned on chair. call light and table placed within reach . Gait Assessment Gait Gait Assistance Required: Contact Guard Assist Distance (Feet) 40 Able to Maintain Weight Bearing Status Yes During Gait Assistive Devices Assistive Device None,Gait Belt Orthotic/Prosthetic Devices or Brace: No Gait Deviations General Gait Pattern Decreased Stride Length, Decreased Feet Clearance Factors Limiting Gait Function Factors Limiting Gait Function Decreased Activity Tolerance, Decreased Strength,Poor Balance PT-Balance Assessment Sitting Balance and Reactions Static Sitting Balance Ability Normal Dynamic Sitting Balance Ability Good Standing Balance and Reactions Static Standing Balance Ability Good Dynamic Standing Balance Ability Fair Device Used without AD Functional Assessments Functional Tests Tinetti Balance and Gait Assessment bal score: 09/16 gait score: total: Other Functional Tests Performed tinetti balance: which relates to moderate fall risk M5 PT-IP Objective Assessments Start: 01/29/21 15:24 Freq: NEEDED Status: Active Protocol: Document 01/29/21 14:20 AB (Rec: 01/29/21 15:58 AB [id number]) Orientation Orientation/Cognition Level of Alertness Alert Orientation Name,Month,Year,Place Memory Description No Deficits Noted Gross Range of Motion Lower Extremity ROM Assessment Within Functional Limits Strength Lower Extremity Strength Assessment Within Functional Limits Sensation Assessment Sensation Gross Sensation WNL Muscle Tone Muscle Tone WNL Yes M6 PT-IP Treatment Start: 01/29/21 15:24 Freq: NEEDED Status: Active Protocol: Document 01/29/21 14:20 AB (Rec: 01/29/21 15:58 AB [id number]) Physical Therapy Treatment Education Education Provided Safety Other Treatments Other Treatment Performed standing balance: increase body position and COG awareness M7 PT-IP Assessment and Plan Start: 01/29/21 15:24 Freq: NEEDED Status: Active Protocol: Document 01/29/21 14:20 AB (Rec: 01/29/21 15:58 AB [email or web address]) PT Summary Assessment and Plan Potential Rehabilitation Potential Good Status of Condition at Evaluation Stable Summary Impairments Balance,Coordination,Sensation ,Cognition,Bed Mobility, Transfers,Gait,Activity Tolerance Assessment Summary pt requiring SBA to CGA with mobility without AD. Tinetti balance assessment: which realtes to moderate fall risk. pt lives alone and will not have assistance at home. d/c plan depending on progress during hospital stay and will need to continue assessing. if pt goes home, will require assistance at this time for safety. Goals Bed Mobility Goal Independent Transfer Goal Independent Gait Goal Independent Gait Distance 200 Other Goals up/down 2 steps B rails SBA Days to Meet Goals 5 Frequency of Treatment Frequency Of Treatment Once a Day Treatment Plan Physical Therapy Treatment Plan Bed Mobility Training,Transfer Training,Gait Training, Therapeutic Exercise,Balance Retraining,Discharge Planning, Hot or Cold Pack,Neuromuscular Re-ed,Coordination Retraining Precautions Other Precautions falls Recommendations To Nursing Amount of Assist Needed 1 Person Assist Discharge Recommendations PT Discharge Recommendations Home with Assistance,Home vs SNF Transportation Needs at Discharge Private Vehicle
[2021-01-29 15:46] VITALS: BP 117/61; PULSE 58; RESP 18; TEMP 36.4; O2SAT 95
--- NOTE | 2021-01-29 16:44 | OT.IP.EVAL ---
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 (Rec: 01/29/21 18:12 [facility] [id number]) Medical Review Prior Functional Status Medical History Reviewed Yes Communication able to make needs known but with difficulty with speaking Mobility and Gait pt stated that he is independent with all mobilities and ambulation without AD Activities of Daily Living and IADL's Pt states prior was completely independent for all needs. Social History Household Members none Living Arrangements House Number of Floors (Floors) One Floor Number of Stairs To Enter/Railing? 2 steps to enter with bilateral posts (roof support posts) that he can hold on to Home Environment Standard Height Toilet,Tub/ Shower,Built-In Shower Seat Additional Social History Comment pt stated that his ex- calls and checks on him, Pt's ex- Catherine states is available to stay with him until he gets better if needed . M2 OT-IP Current Condition Start: 01/29/21 17:17 Freq: Status: Active Protocol: Document 01/29/21 17:50 [facility] (Rec: 01/29/21 18:12 [facility] [id number]) Occupational Therapy Current Condition Current Condition Evaluation Date 01/29/21 Treatment Diagnosis CVA Diagnosis Onset Date 01/28/21 M3 OT- IP Subjective and Pain Start: 01/29/21 17:17 Freq: Status: Active Protocol: Document 01/29/21 17:50 [facility] (Rec: 01/29/21 18:12 [facility] [id number]) OT- Subjective Occupational Therapy Visit Type Type Initial Evaluation Visit Start Time 16:00 Visit Stop Time 16:44 Total Visit Minutes 44 Occupational Therapy Visit Comments Patient Comments Pt agreed to do OT eval. Pt's ex- , Catherine present. Patient/Caregiver Goals Ideally, pt states would like to go home. OT Pain Assessment Pain When Pain Assessed At Rest Pain Present Pain Present Denied Pain M4 OT- IP ADL's Start: 01/29/21 17:17 Freq: Status: Active Protocol: Document 01/29/21 17:50 [facility] (Rec: 01/29/21 18:12 [facility] [id number]) OT [id number] Comments OT Self-Feeding Comments Pt states earlier was having trouble to guide the utensil with his right hand to eat . OT ADL-Grooming General Evaluation Grooming Ability Standby Assistance Areas Needing Assistance Retrieving/Set-up of Grooming Items Comments OT Grooming Comments Pt tends to use his left hand more than right hand while standing, combing and putting his hair up in a pony tail. OT ADL-Oral Care General Eval Oral Care Ability Independent OT ADL-Dressing General Eval Lower Body Dressing Ability Standby Assistance Comments OT Dressing Comments Pt using his left hand more than right hand to assist to ingrid his socks while seated. OT ADL-Toileting Comments OT Toileting Comments Pt not having to use the bathroom. OT ADL-Bathing Comments OT Bathing Comments To attempt tomorrow. M5 OT- IP IADL's Start: 01/29/21 17:17 Freq: Status: Active Protocol: Document 01/29/21 17:50 [facility] (Rec: 01/29/21 18:12 [facility] [id number]) OT-Instrumental Activities of Daily Living Home Safety Awareness Awareness of Need for Assistance at Home Decreased Awareness Home Safety Comments Pt having difficulty with cognitive functioning at this time, proprioception and coordination with right hand,, and would be best for his ex- to provide supervision and assist as needed. M6 OT- IP Functional Cognition Start: 01/29/21 17:17 Freq: Status: Active Protocol: Document 01/29/21 17:50 [facility] (Rec: 01/29/21 18:12 [facility] [id number]) Cognitive Factors Limiting Selfcare Function Cognitive Ability Level of Alertness Alert Patient Orientation Name,Place,Situation Attention Span Ability Capable of Focused Attention, Capable of Sustained Attention Ability to Follow Commands Able to Follow One Step Commands Memory Description Short Term Impaired,Working Impaired Safety Awareness Underestimates Need for Assistance Problem Solving Ability Unable to Identify Errors, Needs Assist to Identify Solutions Executive Function Ability Unable to Switch Focus,Unable to Organize Plans,Unable to Remember Details Cognitive Tests SLUMS Per CARE ASST pt scored , please see CARE [facility]ST eval for details. Cognitive Comments Cognitive Assessment Comments Pt not able to complete [place] making Part B and only able to get through 1-A-2-B before connecting to 4. Pt score implies severe impairment for visual attention, speed of processing, mental flexibility, executive functioning, and task switching. Pt strongly suggesting no driving at this time. Pt is very impulsive and likes to joke around a lot. OT- Vision and Hearing OT- Hearing Assessment OT- Hearing Assessment WFL OT- Vision Assessment Visual Acuity WFL Occular Pursuits WFL Visual Convergence WFL Visual Chairez WFL Diplopia Absent Vision Assessment Comments Pt states wears driving glasses. M7 OT- IP Mobility and Balance Start: 01/29/21 17:17 Freq: Status: Active Protocol: Document 01/29/21 17:50 [facility] (Rec: 01/29/21 18:12 [facility] [id number]) OT-Transfer Assessment Sit to and From Stand Sit to and from Stand Standby Assistance Transfers Transfer Ability Standby Assistance,Contact Guard Assistance Technique Transfer Destination Chair Transfer Technique Stand Step Pivot Devices Transfer Assistive Devices None,Gait Belt Comments Mobility Comments Close SBA to CGA for balance without any devices for short distance to sink and back to the recliner. OT- Balance Assessment Sitting Balance and Reactions Static Sitting Balance Ability Normal Dynamic Sitting Balance Ability Good Standing Balance and Reactions Static Standing Balance Ability Fair M8 OT- IP Objective Assessments Start: 01/29/21 17:17 Freq: Status: Active Protocol: Document 01/29/21 17:50 [facility] (Rec: 01/29/21 18:12 [facility] [id number]) OT Gross Range of Motion Upper Extremity Range of Motion Assessment Within Functional Limits OT Strength Upper Extremity Strength Assessment Right Impaired Comments Strength Comments RUE 4/5, LUE4+/5 OT- Coordination Assessment Upper Extremity Finger to Nose Test Right UE Impaired Comments Coordination Comments Pt decreased for hand writing, illegible and very small. Pt given cues to write between the line which appeared to improve his handwriting a little. Pt tends to flavor using his left hand more than right for ADl needs at this time. OT-Muscle Tone Assessment Muscle Tone WNL Yes OT Sensation Assessment Comments Summary Comments Grossly intact for light touch . Decreased prioprioception and kinesthesia for right wrist and hand. Educated to be mindful of his right side to prevent from hitting doorways, etc.. M9 OT- IP Assessment and Plan Start: 01/29/21 17:17 Freq: Status: Active Protocol: Document 01/29/21 17:50 [facility] (Rec: 01/29/21 18:12 [facility] [id number]) OT Summary Assessment and Plan Potential Rehabilitation Potential Good Analytic Complexity at Evaluation Moderate Summary OT Impairments Strength,Balance,Coordination, Functional Cognition, Functional Mobility,Self- Feeding,Grooming,Dressing, Toileting,Bathing,Toilet Transfers,Shower Transfers, Activity Tolerance Progress Towards Goals Progressing Toward Goals,Slow Progress due to Cognition Assessment Summary Pt MOD complexity and main barriers are steps, decreased executive functioning, coordination of right hand, decreased safety awareness and activity tolerance. Pt would benefit from skilled rehab versus home health/outpt pending pt's progress and 24/04 assist. Goals Self-Feeding Goal Independent Grooming Goal Independent Dressing Goal Independent Toileting Goal Independent Bathing Goal Independent Toilet Transfer Goal Independent Shower Transfer Goal Independent Days to Meet Goals 15 Frequency of Treatment Frequency Of Treatment Once a Day Treatment Plan OT Treatment Plan ADL Training,Functional Cognition Training,Functional Mobility,Patient/Family Education,Discharge Planning Other Treatment Recommendations and Next shower/FMS Treatment Focus Discharge Recommendations OT Discharge Recommendations Home vs SNF Other Discharge Recommendations pending progress and assist at home SNF versus home with 24/04 assist and home health/outpt Home Equipment Needs shower chair Transportation Needs at Discharge Private Vehicle
[2021-01-29 19:23] VITALS: BP 107/63; PULSE 57; RESP 18; TEMP 36.8; O2SAT 97
[2021-01-29] MEDS: ATORVASTATIN 20 MG TABLET 40 MG PO (20:47)
[2021-01-29 23:27] VITALS: BP 106/55; PULSE 56; RESP 18; TEMP 36.7; O2SAT 96
[2021-01-30 03:29] VITALS: BP 100/60; PULSE 47; RESP 18; TEMP 36.7; O2SAT 96
--- NOTE | 2021-01-30 03:31 | PC.NURSE ---
Addendum entered by Keli Edwards R.N. 01/30/21 03:35: correction: fall risk score is high Original Note: patient is alert and oriented with slurred speech and some word finding difficulty. NIH of 2. Breath sounds CTA with RA sat of 96%. HRR but bradycardic and telemetry reading was SB w/rate of 48. Denies nausea. BT present and abdomen is soft. Denies dysuria, frequency or urgency with urination; urine is clear yellow. Is able to turn himself in bed. Does not always remember to call for assistance and is slightly unsteady on feet. Fall risk score is moderate and bed alarm is activated. Declines to wear SCD's so reminded to ankle wave. Denies pain.
[2021-01-30 05:25] LABS: BUN Creatinine Ratio 15.9 (6-22); Blood Urea Nitrogen 13 mg/dL (9-20); Calcium 8.4 mg/dL (8.4-10.2); Carbon Dioxide 27 mmol/L (22-32); Chloride 106 mmol/L (98-107); Estimated Glomerular Filt Rate > 60.0 mL/min (>60); Glucose 95 mg/dL (80-110); HEMOLYSIS < 15 (0-50); Potassium 4.1 mmol/L (3.4-5.1); Sodium 136 mmol/L (137-145)
[2021-01-30 07:44] VITALS: BP 133/69; PULSE 55; RESP 15; TEMP 36.2; O2SAT 94
--- NOTE | 2021-01-30 07:44 | PC.NURSE ---
Day shift: Pt agrees to not get OOB w/o help from staff. Chair alarm is on. Call light in reach.
[2021-01-30 08:21] VITALS: O2SAT 96
[2021-01-30] MEDS: ASPIRIN EC 81 MG TABLET PO (09:44)
[2021-01-30] MEDS: SODIUM CHLORIDE 0.9% FLUSH 10 ML IV (09:44)
[2021-01-30] MEDS: ENOXAPARIN 40 MG/0.4 ML SYRINGE SUBCUT (09:44)
[2021-01-30] MEDS: CLOPIDOGREL 75 MG TABLET PO (09:44)
[2021-01-30] MEDS: SERTRALINE 50 MG TABLET 100 MG PO (09:44)
[2021-01-30] MEDS: DOCUSATE 100 MG CAPSULE PO (09:44)
--- NOTE | 2021-01-30 11:24 | PT.IPTN ---
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) Physical Therapy Treatment Note M2 PT-IP Current Condition Start: 01/29/21 15:24 Freq: NEEDED Status: Active Protocol: Document 01/29/21 14:20 AB (Rec: 01/29/21 15:58 AB [id number]) Physical Therapy Current Condition Current Condition Evaluation Date 01/29/21 Treatment Diagnosis CVA; difficulty in walking Onset Date 01/28/21 Precautions Other Precautions falls M3 PT-IP Subjective Start: 01/29/21 15:24 Freq: NEEDED Status: Active Protocol: Document 01/29/21 14:20 AB (Rec: 01/29/21 15:58 AB [id number]) Subjective Physical Therapy Visit Type Type Initial Evaluation Visit Start Time 14:20 Visit Stop Time 14:55 Total Visit Minutes 35 Number of [employer] S[employer]OR SPECIALIST Visits 0 Physical Therapy Visit Comments Patient Comments pt is agreeable to do PT Therapy Pain Assessment Pain Present Pain Present Denied Pain M4 PT-IP Mobility and Gait Start: 01/29/21 15:24 Freq: NEEDED Status: Active Protocol: Document 01/30/21 11:00 [facility] (Rec: 01/30/21 11:44 [facility] [id number]) PT-Transfer Assessment Sit to and From Stand Sit to and from Stand Standby Assistance Equipment Transfer Assistive Device None,Gait Belt Orthotic/Prosthetic Devices or Brace: No Transfers Transfer Destination Chair Transfer Technique ambulated without AD Transfer Ability Level of Assist Standby Assistance Comments Mobility Comments Pt stood from chair SBA and ambulated w/o AD SBA to therapy stairs, pt climbed stairs with use of bilateral rails SBA and ambulated in sarkar further before returning to room. Once in room pt performed standing balance. Pt left in room with all needs within reach and chair alarm on. Gait Assessment Gait Gait Assistance Required: Standby Assistance Distance (Feet) 400 Able to Maintain Weight Bearing Status Yes During Gait Assistive Devices Assistive Device None,Gait Belt Orthotic/Prosthetic Devices or Brace: No Gait Deviations General Gait Pattern Decreased Stride Length, Decreased Feet Clearance Factors Limiting Gait Function Factors Limiting Gait Function Decreased Activity Tolerance, Decreased Strength,Poor Balance Comments Gait Comments Pt had no LOB during gait but states he feels like he sways to the right. Pt required SBA w/o AD ~400ft. Stair Climbing Assessment Evaluation Level of Assist On Stairs Standby Assistance Devices Stair Climbing Assistive Devices Left Railing,Right Railing Technique/Endurance Stair Climbing Direction Ascend and Descend Stair Climbing Technique Step Over Step Number of Steps Climbed 3 Stair Climbing Set # Repetitions (reps) 1 PT-Balance Assessment Sitting Balance and Reactions Static Sitting Balance Ability Normal Dynamic Sitting Balance Ability Good Standing Balance and Reactions Static Standing Balance Ability Good Dynamic Standing Balance Ability Fair Device Used without AD Comments Other Balance Tests/Deviations/Treatment NBS EO/EC able to stand : without LOB with EO/EC. Tandem stance unable. Modified tandem EO/EC. M5 PT-IP Objective Assessments Start: 01/29/21 15:24 Freq: NEEDED Status: Active Protocol: Document 01/29/21 14:20 [facility] (Rec: 01/29/21 15:58 AB [id number]) Orientation Orientation/Cognition Level of Alertness Alert Orientation Name,Month,Year,Place Memory Description No Deficits Noted Gross Range of Motion Lower Extremity ROM Assessment Within Functional Limits Strength Lower Extremity Strength Assessment Within Functional Limits Sensation Assessment Sensation Gross Sensation WNL Muscle Tone Muscle Tone WNL Yes M6 PT-IP Treatment Start: 01/29/21 15:24 Freq: NEEDED Status: Active Protocol: Document 01/30/21 11:00 [facility] (Rec: 01/30/21 11:44 [facility] [id number]) Physical Therapy Treatment Education Education Provided Safety M7 PT-IP Assessment and Plan Start: 01/29/21 15:24 Freq: NEEDED Status: Active Protocol: Document 01/30/21 11:00 [facility] (Rec: 01/30/21 11:44 [facility] [id number]) PT Summary Assessment and Plan Potential Rehabilitation Potential Good Status of Condition at Evaluation Stable Summary Impairments Balance,Coordination,Sensation ,Cognition,Bed Mobility, Transfers,Gait,Activity Tolerance Progress Towards Goals Progressing Toward Goals Assessment Summary Pt with improved mobility able to ambulate ~400ft w/o AD SBA and climb stairs with bilateral rails SBA. Pt had no LOB during gait. Pt speak is slow but is able to answer question appropriately and follow directions. Pt plans to d/c home with assist of Catherine who will be able to assist him. Goals Bed Mobility Goal Independent Transfer Goal Independent Gait Goal Independent Gait Distance 200 Other Goals up/down 2 steps B rails SBA Days to Meet Goals 5 Frequency of Treatment Frequency Of Treatment Once a Day Treatment Plan Physical Therapy Treatment Plan Bed Mobility Training,Transfer Training,Gait Training, Therapeutic Exercise,Balance Retraining,Discharge Planning, Hot or Cold Pack,Neuromuscular Re-ed,Coordination Retraining Precautions Other Precautions falls Recommendations To Nursing Amount of Assist Needed 1 Person Assist Discharge Recommendations PT Discharge Recommendations Home with Assistance Transportation Needs at Discharge Private Vehicle
[2021-01-30 11:29] VITALS: BP 133/67; PULSE 55; RESP 16; TEMP 36.2; O2SAT 97
--- NOTE | 2021-01-30 11:59 | OT.IP.TRT ---
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 (Rec: 01/29/21 18:12 [facility] [id number]) Occupational Therapy Current Condition Current Condition Evaluation Date 01/29/21 Treatment Diagnosis CVA Diagnosis Onset Date 01/28/21 M3 OT- IP Subjective and Pain Start: 01/29/21 17:17 Freq: Status: Active Protocol: Document 01/30/21 13:40 [facility] (Rec: 01/30/21 13:44 [facility] [id number]) OT- Subjective Occupational Therapy Visit Type Type Progress Note Visit Start Time 11:45 Visit Stop Time 11:59 Total Visit Minutes 14 OT Pain Assessment Pain When Pain Assessed At Rest Pain Present Pain Present Denied Pain M4 OT- IP ADL's Start: 01/29/21 17:17 Freq: Status: Active Protocol: Document 01/30/21 13:40 [facility] (Rec: 01/30/21 13:44 [facility] [id number]) OT [id number] Comments OT Self-Feeding Comments not meal time OT ADL-Grooming General Evaluation Grooming Ability Independent Areas Needing Assistance Face Washing Comments OT Grooming Comments standing at sink OT ADL-Oral Care General Eval Oral Care Ability Independent Areas of Assistance Brushing Teeth,Retrieving/Set- Up of Items Comments Oral Care Comments standing at sink OT ADL-Dressing General Eval Lower Body Dressing Ability Independent Areas Needing Assistance Underpants/Brief,Socks Comments OT Dressing Comments seated in chair OT ADL-Toileting General Evaluation Toileting Ability Independent OT ADL-Bathing Comments OT Bathing Comments not performed M5 OT- IP IADL's Start: 01/29/21 17:17 Freq: Status: Active Protocol: Document 01/29/21 17:50 [facility] (Rec: 01/29/21 18:12 [facility] [id number]) OT-Instrumental Activities of Daily Living Home Safety Awareness Awareness of Need for Assistance at Home Decreased Awareness Home Safety Comments Pt having difficulty with cognitive functioning at this time, proprioception and coordination with right hand,, and would be best for his ex- to provide supervision and assist as needed. M6 OT- IP Functional Cognition Start: 01/29/21 17:17 Freq: Status: Active Protocol: Document 01/29/21 17:50 [facility] (Rec: 01/29/21 18:12 [facility] [id number]) Cognitive Factors Limiting Selfcare Function Cognitive Ability Level of Alertness Alert Patient Orientation Name,Place,Situation Attention Span Ability Capable of Focused Attention, Capable of Sustained Attention Ability to Follow Commands Able to Follow One Step Commands Memory Description Short Term Impaired,Working Impaired Safety Awareness Underestimates Need for Assistance Problem Solving Ability Unable to Identify Errors, Needs Assist to Identify Solutions Executive Function Ability Unable to Switch Focus,Unable to Organize Plans,Unable to Remember Details Cognitive Tests SLUMS Per MECHANICAL SYSTEM TECHNICIAN pt scored , please see MECHANICAL SYSTEM TECHNICIAN lavon for details. Cognitive Comments Cognitive Assessment Comments Pt not able to complete [place]ice making Part B and only able to get through 1-A-2-B before connecting to 4. Pt score implies severe impairment for visual attention, speed of processing, mental flexibilty, executive functioning, and task switching. Pt strongly suggesting no driving at this time. Pt is very impulsive and like to joke around a lot. OT- Vision and Hearing OT- Hearing Assessment OT- Hearing Assessment WFL OT- Vision Assessment Visual Acuity WFL Occular Pursuits WFL Visual Convergence WFL Visual Chairez WFL Diplopia Absent Vision Assessment Comments Pt states wears driving glasses. M7 OT- IP Mobility and Balance Start: 01/29/21 17:17 Freq: Status: Active Protocol: Document 01/30/21 13:40 [facility] (Rec: 01/30/21 13:44 [facility] [id number]) OT- Bed Mobility Assessment Supine to Sit Supine to Sit Assist Independent Sit to Supine Sit to Supine Assist Independent OT-Transfer Assessment Sit to and From Stand Sit to and from Stand Standby Assistance Transfers Transfer Ability Standby Assistance Technique Transfer Destination Bed,Chair,Toilet Transfer Technique Stand Step Pivot Devices Transfer Assistive Devices Gait Belt Comments Mobility Comments pt mobilized around the room without AD. OT- Balance Assessment Sitting Balance and Reactions Static Sitting Balance Ability Normal Dynamic Sitting Balance Ability Good M8 OT- IP Objective Assessments Start: 01/29/21 17:17 Freq: Status: Active Protocol: Document 01/29/21 17:50 [facility] (Rec: 01/29/21 18:12 [facility] [id number]) OT Gross Range of Motion Upper Extremity Range of Motion Assessment Within Functional Limits OT Strength Upper Extremity Strength Assessment Right Impaired Comments Strength Comments RUE 4/5, LUE4+/5 OT- Coordination Assessment Upper Extremity Finger to Nose Test Right UE Impaired Comments Coordination Comments Pt decreased for hand writing, illegible and very small. Pt given cues to write between the line which appeared to improve his handwriting a little. Pt tends to flavor using his left hand more than right for ADl needs at this time. OT-Muscle Tone Assessment Muscle Tone WNL Yes OT Sensation Assessment Comments Summary Comments Grossly intact for light touch . Decreased prioprioception and kinesthesia for right wrist and hand. Educated to be mindful of his right side to prevent from hitting doorways, etc.. M9 OT- IP Assessment and Plan Start: 01/29/21 17:17 Freq: Status: Active Protocol: Document 01/30/21 13:40 [facility] (Rec: 01/30/21 13:44 [facility] [id number]) OT Summary Assessment and Plan Potential Rehabilitation Potential Good Analytic Complexity at Evaluation Moderate Summary OT Impairments Strength,Balance,Coordination, Functional Cognition, Functional Mobility,Self- Feeding,Grooming,Dressing, Toileting,Bathing,Toilet Transfers,Shower Transfers, Activity Tolerance Progress Towards Goals Progressing Toward Goals,Slow Progress due to Cognition Assessment Summary Pt participated in ADLs demonstrating his increased abilities. Pt is now safe for discharge home with family checking in. Pt educated on activities that he could perform to assist with his R handed coordinition deficit but is able to write his name with extra time. Goals Self-Feeding Goal Independent Grooming Goal Independent Dressing Goal Independent Toileting Goal Independent Bathing Goal Independent Toilet Transfer Goal Independent Shower Transfer Goal Independent Days to Meet Goals 3 Frequency of Treatment Frequency Of Treatment Once a Day Treatment Plan OT Treatment Plan ADL Training,Functional Cognition Training,Functional Mobility,Patient/Family Education,Discharge Planning Other Treatment Recommendations and Next shower/FMS Treatment Focus Discharge Recommendations OT Discharge Recommendations Home Other Discharge Recommendations Recommend outpatient P.T. and ST. Home Equipment Needs shower chair Transportation Needs at Discharge Private Vehicle
--- NOTE | 2021-01-30 12:47 | P.DS_ITS ---
History of Present Illness History of Present Illness Date Patient Seen: 01/30/21 Time Patient Seen: 12:47 Chief complaint: fall, can not talk Narrative: As per ZACHARY Slade: Mr. Lauri Najera is a 72-year-old elderly with a past medical history of hyperlipidemia and depression who is brought to the ER by police when the patient was found wandering and disoriented. Upon arrival to the ER the patient had expressive aphasia was nonverbal with a facial droop. The patient's last known well was when he spoke with his ex- 3 days ago. At the time of encounter the patient is verbalizing with dysarthria and does report having fallen and hit his head 3:00 a.m. this morning. He does not recall being brought into the emergency department. Patient additionally reports that last night he had an episode double vision. He denies complaints of headaches or dizziness. He denies recent illness, fevers or chills, nasal congestion or sore throat. He reports no shortness of breath, cough or wheezing and has epigastric or abdominal pain, nausea vomiting, diarrhea or constipation. He reports no difficulty voiding. Upon arrival to the ER the patient has temperature 90.8?, heart rate 64, blood pressure 162/75, respirations 17 saturating 98% on room air. A stat CT stroke protocol as obtain 20 questionable hyperdense left distal vertebral artery suggestive possible thrombosis, no evidence of acute acute stroke or hemorrhage or mass an old focal left posterior temporal stroke. CTA is obtained finding no significant abnormalities involving the left V4 segment of the concerning area noted on the noncontrast head CT. There is approximately 80% narrowing of left proximal internal carotid, 40-50% narrowing involving the right proximal internal carotid and 40% narrowing involving origins of each vertebral artery. On laboratory analysis he has white count of 10.8, hemoglobin 14.5, hematocrit 43.2 and platelets of 234. His coags are all within normal range. His electrolytes are unremarkable with a BUN of 17 and creatinine 0.89. His nonfasting glucose is 124. His liver functions are also within normal ranges. His urinalysis is negative for infection. His urine tox screen is positive for marijuana and is COVID screening is negative. The patient is admitted to the hospitalist team for presumed CVA. Discharge Providers Provider Date of admission: 01/28/21 17:36 Discharge Date: 01/30/21 Primary care physician: Roxann Garcia MD Consults: 01/28/21 16:54 Consult to Speech Therapy Evaluate & Treat Comment: needs swallow eval Physician Instructions: Evaluate and treat 01/28/21 21:08 Consult to Discharge Planning Routine Comment: Consult to Occupational Therapy Evaluate & Treat Comment: Physician Instructions: Evaluate and treat Consult to Physical Therapy Evaluate & Treat Comment: Physician Instructions: Evaluate and Treat Consult to Speech Therapy Evaluate & Treat Comment: Physician Instructions: Evaluate and treat Discharge provider: Jose Pang DO Summary Hospital Course Discharge Diagnosis: Please see hospital course by problem list noted below. Hospital Course: This is a 80-year-old frail-appearing elderly gentleman who is a current smoker with a past medical history of hyperlipidemia and depression who is brought to the ER by police after being found wandering and disoriented unable to speak, improved over the course of admission. MRI confirmed acute left sided CVA. 1. Acute CVA, present on admission, active. -patient with prior left posterior temporal stroke and describes a fall hitting his head early this morning and double vision night prior to admission. -NIH score in the ER reported as 5, nursing reports a score of 4 and at the time of initial encounter NIH score is 3. Patient continues to demonstrate a trajectory of improvement, last known normal was 3 days ago. -CT of the head identifies hypodensity concerning for possible thrombus in the left distal vertebral artery. On CTA no significant abnormalities seen in the concerning segment noting approximately 80% narrowing involving the left proximal internal carotid artery, 40-50% narrowing of the right proximal ICA, approximate 40% stenosis seen at the origin of each vertebral artery. - MRI shows multiple acute/subacute ischemic infarcts in the area of the L MCA indicative of a left sided embolic event (from carotid). -started on asa, plavix, and his statin increased to high intensity dosing. Plavix should be continued for at least 90 days given carotid disease. Recommend outpatient follow up with vascular surgery. -TTE unremarkable. -discharged home with home health after PT/OT evaluations. SLUMS score 18/30 on admission, however his cognition continued to improve over the course of admission and would recommend repeat evaluation as an outpatient. -A1c 5.5% , LDL 118, TSH 2.6 2. Hyperlipidemia, chronic, stable -patient was previously on statin therapy until approximately 18 months ago. -statin and LDL as noted above. 3. Depression, chronic, stable -continue sertraline 100 mg daily. 4. toxic/metabolic encephalopathy or less likely chronic cognitive impairment - patient with SLUMS of 18 with speech therapy. May be in setting of acute infarct or psychadelic mushroom use as his cognition appeared to improve over the course of his hospitalization. Recommend repeat SLUMS as an outpatient. - discharged home with home health. 5. Tobacco use - patient was counseled on tobacco cessation. Status at Discharge Overall status at discharge: patient is progressing back to baseline Time Spent with Patient Time spent: Greater than 30 minutes Exam Vital Signs (past 8 hours): - 01/30/21 07:44 01/30/21 08:21 Temperature 97.2 F L Pulse Rate 55 L Respiratory Rate 15 Blood Pressure 133/69 Pulse Oximetry 94 96 Oxygen Delivery Method Room Air Oxygen Flow Rate 0 Narrative Exam Narrative: GENERAL APPEARANCE: well developed, mildly frail appearing elderly gentleman with impaired speech, in no acute distress. HEENT: Atraumatic, PERRLA, conjunctiva clear, EOMs intact without nystagmus, no sinus tenderness to percussion, no rhinorrhea or epistaxis, mucous membranes are moist and pink. NECK/THYROID: neck supple, no JVD, no carotid bruit, no thyromegaly, trachea midline. LYMPH NODES: no cervical or supraclavicular lymphadenopathy. SKIN: [place], warm and dry, no visible lesions, rashes, ulcerations or petechiae. HEART: regular rate and rhythm, S1-S2, no rubs, murmur, or gallops, brisk capillary refill, no edema LUNGS: clear to auscultation bilaterally, no coarseness crackles or wheezing, no cough present CHEST: Symmetrical movement, no accessory muscle use, good tidal volume ABDOMEN: Soft, no distention, no abdominal tenderness EXTREMITIES: moves all extremities, strength is 5/5 and symmetrical, no deformities or joint effusions. NEUROLOGIC: AAO x4, no focal neurologic deficits other than dysarthria which has improved, cranial nerves II-XII grossly intact, sensation intact to light touch, hearing grossly normal to speech. PSYCH: Good judgment, good insight, linear thought process, cooperative, appropriate with stable behavio Objective Labs Result Diagrams: 01/28/21 16:24 01/30/21 05:01 Labs: Laboratory Results - last 24 hr 01/30/21 05:01 Sodium 136 L Potassium 4.1 Chloride 106 Carbon Dioxide 27 BUN 13 Creatinine 0.82 Estimated GFR > 60.0 BUN/Creatinine Ratio 15.9 Glucose 95 Calcium 8.4 PFSH Medical History Cerebrovascular accident Depression Hyperlipidemia Surgical History No history of previous surgery Family History Father Cardiovascular disease Heart attack Mother No significant past medical history Social History household members: none Smoking Status: Current every day smoker alcohol intake: never Discharge Plan Discharge Plan Patient Disposition: Home Health Service Provider Discharge Comment: You were admitted to the hospital after a stroke. Some new medications were added to reduce your risk of having another stroke. You should follow up with your PCP and see about a referral to a vascular surgeon to see if you may benefit from a surgery. Please try and avoid using mus hrooms at home. Discharge orders & Medications Prescriptions: New clopidogrel 75 mg Tablet 75 mg PO DAILY 90 Days Qty: 90 RF: 0 aspirin 81 mg Tablet,Delayed Release (Dr/Ec) 81 mg PO DAILY 30 Days Qty: 30 RF: 0 atorvastatin 40 mg tablet 40 mg PO BEDTIME 30 Days Qty: 30 RF: 0 Continued sertraline 100 mg Tablet 100 mg PO DAILY RF: 0 Follow up/Referrals: Roxann Garcia MD [Primary Care Provider] - Diet/Activity/Treatments Diet: Diet as Tolerated Activity: As tolerated Visit Report/Discharge Packet Instructions: Ischemic Stroke, DI for Stroke-Ischemic, How to Prevent Falls, Atorvastatin, Clopidogrel Discharge Data Primary Care Provider: Roxann Garcia Quality VTE Deep Vein Thrombosis/Pulmonary Embolism Present on Admission: No
--- NOTE | 2021-01-30 13:57 | CM.DPC ---
Addendum entered by Tona Saldivar LPN 01/31/21 12:01: DC summary now complete. Have just faxed it to [facility]. Addendum entered by Tona Saldivar LPN 01/30/21 13:58: DCP: continued: PT/OT have worked with pt again today and he has done extremely well. He will dc to his home today and his ex-spouse Catherine Bird ines be staying with him. HH is recommended, pt is agreeable to same. Has never used this before/ agency list: discussed: vendor list choice is decision: referral to [facility]/ accepts. Will now fax the referral information to [facility] along with the Face/Face document and specific orders. Pt has the [facility] brochure. DC summary will be faxed when it is completed. Original Note: Discharge Planning/Care Management CM Discharge Assessment Start: 01/29/21 12:32 Freq: Status: Active Protocol: Document 01/29/21 12:33 ITV (Rec: 01/29/21 12:34 ITV [id number]) Discharge Planning Assessment Advance Directives? No History Provided By Patient,Medical Record Has Patient been admitted in last 30 No days? Prior Living Arrangements House Household Members none Type of transporation used prior to Drives own vehicle admit Independent with ADL's Yes Is patient alert and oriented? Yes Whiteboard Updated in Patient Room with Yes name and ext. # of [employer] Man Review Status In Process
--- NOTE | 2021-01-30 14:20 | PC.NURSE ---
Day shift: Paperwork signed and all questions answered. Pt has all personal belongings. New MD scripts sent to Pt's pharmacy electronic. Taken to car driven by his friend in by MARIA LUISA Hebert. Pt happy to be going home today. Encouraged to take meds as directed and eat healthy. Also to drink plenty of water and to exercise as tolerated. [employer] has been ordered and Pt has their info.
== END 2021-01-30 14:22 | disposition home health service (06) | DRG 64 ==
LOC: ED 16:27 → AC 17:37
PROVIDERS: Internal Medicine; Nurse Practitioner Adult Health; Admitting Provider Internal Medicine; Emergency Provider Emergency Medicine; PCP Internal Medicine; Referring Provider Emergency Medicine; Visit Provider Internal Medicine
DX: I63.132 Cerebral infarction due to embolism of left carotid artery (principal); G93.41 Metabolic encephalopathy; G92 Toxic encephalopathy; R47.01 Aphasia; F32.9 Major depressive disorder, single episode, unspecified; E78.5 Hyperlipidemia, unspecified; R29.810 Facial weakness; F17.210 Nicotine dependence, cigarettes, uncomplicated; T40.995A Adverse effect of other psychodysleptics [hallucinogens], initial encounter; Z20.822 Contact with and (suspected) exposure to COVID-19; Z66 Do not resuscitate; W19.XXXA Unspecified fall, initial encounter
CPT/HCPCS: 36415; 70450; 70496; 70498; 70548; 70553; 80048; 80053; 80061; 80305; 80320; 81001; 83036; 84443; 85025; 85610; 85730; 87635; 92523; 93005; 93306; 97116; 97161; 97166; 97530; 97535; 99285; 99406; C9803; J1650; Q9967

== ENCOUNTER → 2021-02-19 10:18 | Outpatient (CLI) | payer OTHER, SELFPAY ==
[2021-01-28 17:56] VITALS: BMI 24.8
[2021-02-19] MEDS: COVID-19 VACC, Ad26(JANSSEN)/PF 0.5 ML IM (10:29)
== END ==
PROVIDERS: Visit Provider Internal Medicine
DX: Z23 Encounter for immunization (principal)
CPT/HCPCS: 0031A; 91303

== ENCOUNTER 2022-02-28 23:32 | Emergency (ER) | payer OTHER, SELFPAY ==
[2021-01-28 17:56] VITALS: BMI 24.8
[2022-02-28 23:47] VITALS: BP 135/66; PULSE 74; RESP 20; TEMP 36.7; O2SAT 98
--- NOTE | 2022-02-28 23:55 | DI.RAD.S_ITS ---
PROCEDURE: XR CHEST 2V INDICATIONS: dry cough TECHNIQUE: 2 views of the chest were acquired. COMPARISON: None. FINDINGS: Surgical changes and devices: None. Lungs and pleura: There are a few patchy indistinct opacities bilaterally. No pleural effusions or pneumothorax. Mediastinum: Mediastinal contours are normal. Heart size is normal. Bones and chest wall: No suspicious bony abnormalities. Soft tissues appear unremarkable. IMPRESSION: 1. Patchy indistinct opacities bilaterally are nonspecific but may reflect pneumonia given clinical history. Dictated by: Lee Heaton M.D. on 03/01/2022 at 0:35 Approved by: Lee Heaton M.D. on 03/01/2022 at 0:36
--- NOTE | 2022-03-01 00:08 | DI.CT.S_ITS ---
P the the ROCEDURE: CT ABDOMEN PELVIS W CON INDICATIONS: Abdominal pain, distention, petechia, TECHNIQUE: After the administration of IV contrast, axial sections were acquired from the lung bases to the pubic symphysis. Coronal and sagittal reformats were performed. For radiation dose reduction, the following was used: automated exposure control, adjustment of mA and/or kV according to patient size. COMPARISON: None. FINDINGS: Image quality: Excellent. Lung bases: There are numerous small nodules within the visualized lung bases bilaterally. Vp Treasurer nodule peripherally within the right lower lobe measures up to 0.6 cm on series 3, image 5. Heart: Heart is normal in size. There is a small hiatal hernia. There are prominent paraesophageal lymph nodes measuring up to 0.5 cm in short axis. ABDOMEN: Liver: Innumerable hypoattenuating peripherally enhancing mass lesions are demonstrated throughout the liver involving all segments. A exhibit display representative mass posteriorly within segment 6 measures up to 2.3 x 1.8 cm on series 2, image 30. A exhibit display representative mass within segment 4 B in the left hepatic lobe measures up to 2.8 x 2.7 cm on series 2, image 29. The findings are consistent with metastatic disease. Gallbladder: The gallbladder is nondistended. Biliary ducts: No biliary ductal dilatation. Pancreas: Unremarkable. Spleen: Normal in size. Adrenal Glands: No adrenal nodules. Kidneys and Ureters: No hydronephrosis. Stomach and Bowel: Stomach, small bowel loops, and colon are normal in caliber and wall thickness. The appendix is normal in appearance. No discrete mass lesion identified. Peritoneum: No abnormal intraperitoneal fluid. No free air. Ventral Wall: No hernia. Abdominal Nodes: Multiple enlarged mesenteric and retroperitoneal lymph nodes are demonstrated. These include a exhibit display representative left periaortic node measuring up to 1.9 cm in short axis on series 2, image 44. A exhibit display representative celiac axis node measures up to 1.7 cm on series 2, image 24. The findings are consistent with metastatic disease. Vessels: Aorta and inferior vena cava are normal in size. PELVIS: Pelvic Organs: Unremarkable. Bladder: Unremarkable. Pelvic Nodes: No enlarged lymph nodes. Miscellaneous: No inguinal hernias are seen. Bones: Visualized osseous structures demonstrate osteopenia. There are indistinct lucent lesions within the visualized osseous structures suspicious for metastatic disease per IMPRESSION: 1. Innumerable hepatic mass lesions, many of which demonstrate peripheral enhancement, consistent with metastatic disease. 2. Numerous small bilateral pulmonary nodules within the visualized lungs also consistent with metastatic disease. 3. Enlarged retroperitoneal and mesenteric lymph nodes as well as paraesophageal nodes are nonspecific but consistent with metastatic disease. Dictated by: Lee Heaton M.D. on 03/01/2022 at 1:17 Approved by: Lee Heaton M.D. on 03/01/2022 at 1:25
[2022-03-01 00:23] LABS: Hemoglobin 13.1 g/dL (13.5-17.5); Mean Corpuscular HGB Conc 34.5 % (30-36); Mean Corpuscular Hemoglobin 33.5 PG (26-34); Platelet Count 290 X10^3/uL (150-400); Red Blood Cell Count 3.92 X10^6/uL (4.5-5.9); Red Cell Distribution Width 16.3 % (11.6-14.8)
[2022-03-01 00:24] LABS: Add Manual Diff / Slide Review YES
[2022-03-01 00:44] LABS: INR 1.1 (0.9-1.3); Prothrombin Time 12.3 SECONDS (10.1-12.7)
[2022-03-01 00:47] LABS: PTT Partial Thromboplastin Tim 31 SECONDS (26.4-36.2)
[2022-03-01 00:49] LABS: Alanine Aminotransferase 152 IU/L (<50); Albumin 3.3 g/dL (3.5-5.0); Albumin Globulin Ratio 0.8 (1.0-2.8); Alkaline Phosphatase 768 U/L (38-126); Aspartate Aminotransferase 269 IU/L (17-59); Bilirubin Total 6.5 mg/dL (0.2-1.3); Blood Urea Nitrogen 16 mg/dL (9-20); Calcium 8.9 mg/dL (8.4-10.2); Carbon Dioxide 23 mmol/L (22-32); Chloride 104 mmol/L (98-107); Estimated Glomerular Filt Rate > 60 mL/min (>60); Globulin 4.1 g/dL (1.7-4.1); Glucose 101 mg/dL (80-110); HEMOLYSIS < 15 (0-50); Lipase 132 U/L (23-300); Potassium 4.3 mmol/L (3.4-5.1); Sodium 137 mmol/L (137-145); Total Protein 7.4 g/dL (6.3-8.2)
[2022-03-01 01:14] LABS: Neutrophils Absolute Manual 8190 /uL (3000-5900); RBC Morphology Normal Morphology; Total Cells Counted 100
--- NOTE | 2022-03-01 03:03 | ED_ITS ---
HPI - General Adult General Chief complaint: Abdominal Pain Stated complaint: Abcess on stomach Time Seen by Provider: 03/01/22 00:07 Source: patient Mode of arrival: Ambulatory History of Present Illness HPI narrative: 81-year-old gentleman with a history of stroke 1 year ago, hyperlipidemia and depression comes in today complaining of abdominal pain. He notes no significant medical history and takes no current medications. Abdominal pain has been increasing over the last number of days. He has not been having vomiting or diarrhea. No headaches, chest pain, palpitations, orthopnea or dyspnea. He notes that he has been losing weight over the last 6 months. He does not frequently see physicians. Related Data Home Medications Medication Instructions Recorded Confirmed sertraline 100 mg tablet 100 mg PO DAILY 01/28/21 01/28/21 Previous Rx's Medication Instructions Recorded oxycodone 5 mg tablet 5 - 10 mg PO Q4H PRN #30 tab 03/01/22 Allergies Allergy/AdvReac Type Severity Reaction Status Date / Time No Known Drug Allergies Allergy Verified 02/19/21 11:26 Review of Systems Review of Systems Narrative: Remainder of complete review of systems is otherwise unremarkable except for that included in the HPI. Patient History Medical History Cerebrovascular accident Depression Hyperlipidemia Surgical History No history of previous surgery Family History Father Cardiovascular disease Heart attack Mother No significant past medical history Social History (System 02/19/21 @ 11:26 by Karin Ryder) household members: none Smoking Status: Current every day smoker alcohol intake: never Smoking Status: Current every day smoker alcohol intake frequency: 0-2 drinks per day Substance Use Type: does not use Exam Initial Vital Signs Initial Vital Signs: Vital Signs Temperature 98.1 F 02/28/22 23:47 Pulse Rate 74 02/28/22 23:47 Respiratory Rate 20 02/28/22 23:47 Blood Pressure 135/66 02/28/22 23:47 Pulse Oximetry 98 02/28/22 23:47 General: Healthy appearing, in no acute distress. Able to give a complete and coherent history. Well-nourished well-developed HEENT: Moist mucous membranes, normal sclera with reactive pupils, Neck: No JVD, supple Respiratory: Lungs are clear to auscultation, no wheezing no rales no rhonchi. Full and symmetrical air movement Cardiac: Regular rate and rhythm no murmurs no bruits Abdomen: Soft, mild diffuse tenderness without rebound or guarding, good bowel tones, no flank pain Skin: Warm and dry, no rashes Neurologic: Grossly neurologically intact with no obvious asymmetries or abnormalities Extremities: No trauma, well perfused Psych: Cooperative, appropriate insight and affect Course Orders Ordered: ED Orders 02/28/22 23:54 Complete Blood Count AUTO DIFF Stat Comprehensive Metabolic Panel Stat Lipase Stat 02/28/22 23:55 Chest [XR chest 2V] Stat 03/01/22 00:08 CT abdomen pelvis w con Stat 03/01/22 00:24 PT [Prothrombin Time INR] Stat PTT [Partial Thromboplastin Time] Stat 03/01/22 03:39 Cancer Antigen 19 9 Stat PSA [Prostate Specific Antigen] Stat Vital Signs Vital signs: Vital Signs - 8 hr 02/28/22 23:47 Temperature 98.1 F Pulse Rate 74 Respiratory Rate 20 Blood Pressure 135/66 Pulse Oximetry 98 Medical Decision Making Lab Data Result diagrams: 03/01/22 00:05 03/01/22 00:24 Labs: Lab Results 03/01/22 03/01/22 03/01/22 Range/Units 00:05 00:24 00:24 WBC 13.0 H (4.5-11.0) X10^3/uL RBC 3.92 L (4.5-5.9) X10^6/uL Hgb 13.1 L (13.5-17.5) g/dL Hct 38.0 L (41-53) % MCV 97.0 (80-100) fL MCH 33.5 (26-34) PG MCHC 34.5 (30-36) % RDW 16.3 H (11.6-14.8) % Plt Count 290 (150-400) X10^3/uL Neut % (Auto) Not Reportable Lymph % (Auto) Not Reportable [place] % (Auto) Not Reportable Eos % (Auto) Not Reportable Baso % (Auto) Not Reportable Lymph # (Auto) Not Reportable [place] # (Auto) Not Reportable Baso # (Auto) Not Reportable Total Counted 100 Seg Neutrophils % 61.0 (38-70) % Band Neutrophils % 2.0 L (3-7) % Lymphocytes % (Manual) 34.0 (25-45) % Monocytes % (Manual) 2.0 (2-11) % Eosinophils % (Manual) 1.0 L (2-4) % Neutrophils # (Manual) 8190 H (8791-3733) /uL RBC Morphology Normal morphology PT 12.3 (10.1-12.7) SECONDS INR 1.1 (0.9-1.3) APTT 31 (26.4-36.2) SECONDS Sodium 137 (137-145) mmol/L Potassium 4.3 (3.4-5.1) mmol/L Chloride 104 (98-107) mmol/L Carbon Dioxide 23 (22-32) mmol/L BUN 16 (9-20) mg/dL Creatinine 0.94 (0.66-1.25) mg/dL Estimated GFR > 60 (>60) mL/min BUN/Creatinine Ratio 17.0 (6-22) Glucose 101 (80-110) mg/dL Calcium 8.9 (8.4-10.2) mg/dL Total Bilirubin 6.5 H (0.2-1.3) mg/dL AST 269 H (17-59) IU/L ALT 152 H (<50) IU/L Alkaline Phosphatase 768 H (38-126) U/L Total Protein 7.4 (6.3-8.2) g/dL Albumin 3.3 L (3.5-5.0) g/dL Globulin 4.1 (1.7-4.1) g/dL Albumin/Globulin Ratio 0.8 L (1.0-2.8) Lipase 132 (23-300) U/L CA 19-9 Antigen (0-35) U/mL Prostate Specific Ag (0.10-4.00) ng/mL 03/01/22 03/01/22 Range/Units 00:24 00:24 WBC (4.5-11.0) X10^3/uL RBC (4.5-5.9) X10^6/uL Hgb (13.5-17.5) g/dL Hct (41-53) % MCV (80-100) fL MCH (26-34) PG MCHC (30-36) % RDW (11.6-14.8) % Plt Count (150-400) X10^3/uL Neut % (Auto) Lymph % (Auto) [place] % (Auto) Eos % (Auto) Baso % (Auto) Lymph # (Auto) [place] # (Auto) Baso # (Auto) Total Counted Seg Neutrophils % (38-70) % Band Neutrophils % (3-7) % Lymphocytes % (Manual) (25-45) % Monocytes % (Manual) (2-11) % Eosinophils % (Manual) (2-4) % Neutrophils # (Manual) (7883-3126) /uL RBC Morphology PT (10.1-12.7) SECONDS INR (0.9-1.3) APTT (26.4-36.2) SECONDS Sodium (137-145) mmol/L Potassium (3.4-5.1) mmol/L Chloride (98-107) mmol/L Carbon Dioxide (22-32) mmol/L BUN (9-20) mg/dL Creatinine (0.66-1.25) mg/dL Estimated GFR (>60) mL/min BUN/Creatinine Ratio (6-22) Glucose (80-110) mg/dL Calcium (8.4-10.2) mg/dL Total Bilirubin (0.2-1.3) mg/dL AST (17-59) IU/L ALT (<50) IU/L Alkaline Phosphatase (38-126) U/L Total Protein (6.3-8.2) g/dL Albumin (3.5-5.0) g/dL Globulin (1.7-4.1) g/dL Albumin/Globulin Ratio (1.0-2.8) Lipase (23-300) U/L CA 19-9 Antigen 3212 H (0-35) U/mL Prostate Specific Ag 0.350 (0.10-4.00) ng/mL Imaging Data Chest x-ray: Radiologist's Impression: FINDINGS:? ? Surgical changes and devices:? None.? ? Lungs and pleura:? There are a few patchy indistinct opacities bilaterally.? No pleural effusions or pneumothorax.? ? Mediastinum:? Mediastinal contours are normal.? Heart size is normal.? ? Bones and chest wall:? No suspicious bony abnormalities.? Soft tissues appear unremarkable.? ? IMPRESSION:? ? 1. Patchy indistinct opacities bilaterally are nonspecific but may reflect pneumonia given clinical history.? ? ? Dictated by: Lee Heaton M.D. on 03/01/2022 at 0:35 ? ? CT scan - abdomen/pelvis: Radiologist's Impression: FINDINGS:? Image quality:? Excellent.? ? Lung bases:? There are numerous small nodules within the visualized lung bases bilaterally.? Panel Fitter nodule peripherally within the right lower lobe measures up to 0.6 cm on series 3, image 5.? ? Heart:? Heart is normal in size.? There is a small hiatal hernia.? There are prominent paraesophageal lymph nodes measuring up to 0.5 cm in short axis. ? ? ABDOMEN: Liver:? Innumerable hypoattenuating peripherally enhancing mass lesions are demonstrated throughout the liver involving all segments.? A education courses sales representative mass posteriorly within segment 6 measures up to 2.3 x 1.8 cm on series 2, image 30. A education courses sales representative mass within segment 4 B in the left hepatic lobe measures up to 2.8 x 2.7 cm on series 2, image 29. The findings are consistent with metastatic disease.? Gallbladder:? The gallbladder is nondistended. Biliary ducts:? No biliary ductal dilatation.? ? Pancreas:? Unremarkable.? ? Spleen:? Normal in size.? ? Adrenal Glands:? No adrenal nodules.? ? Kidneys and Ureters:? No hydronephrosis.? ? ? Stomach and Bowel:? Stomach, small bowel loops, and colon are normal in caliber and wall thickness.? The appendix is normal in appearance.? No discrete mass lesion identified.? Peritoneum:? No abnormal intraperitoneal fluid.? No free air.? ? Ventral Wall: ? No hernia.? Abdominal Nodes:? Multiple enlarged mesenteric and retroperitoneal lymph nodes are demonstrated.? These include a education courses sales representative left periaortic node measuring up to 1.9 cm in short axis on series 2, image 44.? A education [employer] sales representative celiac axis node measures up to 1.7 cm on series 2, image 24. The findings are consistent with metastatic disease.? Vessels:? Aorta and inferior vena cava are normal in size.? ? PELVIS: Pelvic Organs:? Unremarkable.? ? Bladder:? Unremarkable.? ? Pelvic Nodes: No enlarged lymph nodes.? Miscellaneous: No inguinal hernias are seen. ? ? ? Bones:? Visualized osseous structures demonstrate osteopenia.? There are indistinct lucent lesions within the visualized osseous structures suspicious for metastatic disease per ? IMPRESSION:? ? 1. Innumerable hepatic mass lesions, many of which demonstrate peripheral enhancement, consistent with metastatic disease. ? 2. Numerous small bilateral pulmonary nodules within the visualized lungs also consistent with metastatic disease. ? 3. Enlarged retroperitoneal and mesenteric lymph nodes as well as paraesophageal nodes are nonspecific but consistent with metastatic disease.? ? ? Dictated by: Lee Heaton M.D. on 03/01/2022 at 1:17 ? ? MDM Narrative Medical decision making narrative: 81-year-old gentleman with weight loss, abdominal pain significantly abnormal LFTs in the dramatically impressive CT scan with metastatic cancer appearing to infiltrate the majority of his liver and abnormal retroperitoneal nodes with no obvious primary identified on chest x-ray or abdominal CT. Care is reviewed with Dr. Sorto, oncologist. A CA 19 9 as well as PSA have been added to his blood work. Patient will be discharged home and Dr. Balderas will contact him charmaine orrow/later today to schedule an urgent follow-up appointment to discuss what needs to happen next. We did briefly review pain medication options and he is interested in having some oxycodone available at home if needed. We clearly reviewed the importance of using stool softeners and extra water when taking narcotics to avoid constipation. He knows to be expecting a phone call from Dr. Sorto's office to follow-up. 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 I have spoken with Dr. Sorto, are oncology(cancer) Working this evening. He will call you later today to set up a follow-up appointment to discuss what the next steps are for you In the meantime, it is safe for you to go home. I have given you a prescription for oxycodone, a narcotic pain medication to help with the abdominal pain if needed. 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
[2022-03-01 04:06] VITALS: BP 95/65; PULSE 85; RESP 16; O2SAT 98
--- NOTE | 2022-03-01 08:53 | ONC.MSW ---
T/C-Left message for pt's PCP re: his ER visit last night, and that he need's an urgent referral to Oncology. Will watch for referral.
[2022-03-01 19:06] LABS: Cancer (Carbohydrate) Ag 19-9 3212 U/mL (0-35)
== END 2022-03-01 04:01 | disposition home or self-care (01) ==
PROVIDERS: Emergency Provider Emergency Medicine; PCP Internal Medicine
DX: C79.9 Secondary malignant neoplasm of unspecified site (principal); R10.9 Unspecified abdominal pain; R63.4 Abnormal weight loss; R05.9 Cough, unspecified
CPT/HCPCS: 36415; 71046; 74177; 80053; 83690; 84153; 85007; 85025; 85610; 85730; 86301; 99284; Q9967